=== PATIENT | male | born 1960 | race Hispanic/Latino ===

== ENCOUNTER → 2016-11-25 | Outpatient (CLI) | payer OTHER ==
[~2016-11-25] MED LIST: ASP81TEC PO; METO25TA PO; OMEG-160 PO; OMG1KC PO; PNT40TEC PO; PRAS10TA6 PO; PRAV40TA PO; TAMS0.4C2 PO
--- NOTE | 2016-11-26 08:58 | ECHOCARDIOGRAPHY REPORT ---
PROCEDURE PHYSICIAN: ADILIA PERKINS DATE OF PROCEDURE: 11/25/2016 TWO DIMENSIONAL ECHOCARDIOGRAM REPORT PRIMARY PHYSICIAN: OTHER PHYSICIAN: REFERRING PHYSICIAN: Dr. Edelmira Bhatti ORDERING PHYSICIAN: INDICATION FOR THE PROCEDURE: Coronary artery disease. MEASUREMENTS DERIVED VALUES LV DIAMETER (LAX) NORMALS NORMALS Diastolic 4.6 (3.6-5.2) Eject. Fract. 60% (60%+/-6%) Systolic (2.3-3.9) Diastolic Vol. % Shortening (0.22-0.42) Systolic Vol. Aortic Root IVS THICKNESS Diastolic 1 (0.6-1.1) LVPW THICKNESS Diastolic 1 (0.6-1.1) LA DIAMETER Systolic 3.3 (2.1-3.7) FINDINGS: 1. Technical quality is good. 2. The left ventricle is normal in size with normal contractility. Systolic function appeared to be normal. Estimated ejection fraction 60%. 3. The left atrium is normal in size. No clot or thrombus were seen within the left atrium. 4. The right atrium and right ventricle are normal in size. No clot or thrombus were seen within the right side. 5. Mitral valve is normal in morphology with mild mitral regurgitation noted by color Doppler flow. No mitral valve prolapse. No mitral valve stenosis. 6. Aortic valve is trileaflet with normal opening and closing pattern. No significant aortic stenosis or regurgitation was seen. 7. Tricuspid valve is normal in morphology with mild tricuspid regurgitation noted by color Doppler flow. Doppler across tricuspid valve estimated pulmonary artery pressure of 16+ right atrial pressure. 8. Pulmonic valve is functioning normally. 9. No pericardial effusion. IN CONCLUSION: 1. Normal left ventricular size and systolic function. Estimated ejection fraction 60%. 2. Mild mitral and tricuspid regurgitation. 3. Estimated pulmonary artery pressure of 25 mmHg. Job ID: [id number] Dictated Date: 11/25/2016 16:52:12 Pan Devulcanizer Helper Date: 11/26/2016 08:56:05 / lin
== END ==
LOC: CARD 09:59
PROVIDERS: ATTEND Internal Medicine Cardiovascular Disease
DX: I25.10 Atherosclerotic heart disease of native coronary artery without angina pectoris (principal)
CPT/HCPCS: 93306

== ENCOUNTER → 2017-02-08 | Outpatient (CLI) | payer OTHER ==
[~2017-02-08] VITALS: Ht 170.2 cm; Wt 88.0 kg
[~2017-02-08] MED LIST changes: +CATHETER FLUSH 10 ML SYR IV PRN
[2017-02-08 09:29] VITALS: BP 118/85
[2017-02-08 09:32] VITALS: BP 117/75
[2017-02-08 09:34] VITALS: BP 125/63
[2017-02-08 09:41] VITALS: BP 180/80
[2017-02-08 09:44] VITALS: BP 145/65
[2017-02-08 09:50] VITALS: BP 137/69
--- NOTE | 2017-02-09 07:14 | STRESS TEST ---
DATE OF SERVICE: 02/08/2017 REFERRING PHYSICIAN: Dr. Edelmira Bhatti Baseline heart rate is 64, baseline blood pressure 123/79, baseline EKG is sinus rhythm with no ischemic changes. In summary, the patient was injected with 10.36 mCi of technetium-99 Myoview and the resting images were obtained. Then the patient started exercising with a baseline heart rate, blood pressure and EKG mentioned above. At minute 11 and 30 seconds, the patient was injected with 29.6 mCi of technetium-99 Myoview. The patient was able to exercise for a total of 12 minutes 30 seconds on standard Regino protocol to 12.8 mets, achieving 97% of maximum expected heart rate. With peak exercise level, EKG was showing nondiagnostic changes. Blood pressure was at peak 180/80. The resting and stress images were reviewed and compared in the short axis, horizontal long axis and vertical long axis views. Review of the images showed breast attenuation affecting the quality of the images. There is no significant ischemia or infarction on SPECT images. There is mild decreased uptake at the anterolateral wall with subtle reversibility. SSS is 4, SDS 3, TID value 0.84. On the gaited images, the left ventricle appeared to be normal size with normal contractility, calculated ejection fraction is 61%. CONCLUSION: 1. Excellent exercise tolerance, a total of 12 minute 30 seconds on standard Regino protocol. A total of 12.8 mets achieving 97% of maximum expected heart rate. 2. Nondiagnostic EKG changes with exercise, returned to baseline during recovery. 3. Breast attenuation affecting the quality of the images with mild decreased uptake involving the anterolateral wall with subtle reversibility, most probably secondary to the breast attenuation. 4. Normal left ventricular size with normal contractility. Calculated ejection fraction 61%. Job ID: [id number] DocumentID: [id number] Dictated Date: 02/08/2017 12:12:17 Armature Winder Repair Date: 02/08/2017 14:46:23 Dictated By: ADILIA PERKINS MD
== END ==
LOC: CARD 08:04
PROVIDERS: ATTEND Internal Medicine Cardiovascular Disease
DX: I25.10 Atherosclerotic heart disease of native coronary artery without angina pectoris (principal)
CPT/HCPCS: 78452; 93017

== ENCOUNTER → 2018-04-21 | Outpatient (CLI) | payer BC, OTHER ==
[~2018-04-21] MED LIST changes: +ACHD5005 PO; +ASPI-999 PO; -CATHETER FLUSH 10 ML SYR IV PRN; +METF500T8 PO; +METO-387 PO; +PANT40TA3 PO; +PRAV40TA2 PO
--- NOTE | 2018-04-21 12:12 | Diagnostic Imaging Report ---
Indication: Lump in the left groin. Sonographic interrogation of the left groin was performed. There is an enlarged lymph node in the left groin measuring 5.8 x 1.9 x 2.5 cm. No other masses are seen. No definite hernia is identified. Impression: Enlarged left groin lymph node, as described and etiology is indeterminate. Dictated by: Dictated on workstation # [id number]
== END ==
LOC: RAD 10:10
PROVIDERS: ATTEND Nurse Practitioner Family
DX: R59.0 Localized enlarged lymph nodes (principal); K40.90 Unilateral inguinal hernia, without obstruction or gangrene, not specified as recurrent
CPT/HCPCS: 76881

== ENCOUNTER 2018-05-10 05:30 | Outpatient (CLI) | payer BC ==
[~2018-05-10] VITALS: Ht 170.2 cm; Wt 85.7 kg
[~2018-05-10 05:30] MED LIST changes: -ACHD5005 PO; -ASPI-999 PO; -METF500T8 PO; -METO-387 PO; -PANT40TA3 PO; -PRAV40TA2 PO
[2018-05-10] MEDS ORDERED: PRAV40TA2 PO (14:54)
[2018-05-10] MEDS ORDERED: METF500T8 PO (14:54)
[2018-05-10] MEDS ORDERED: METO-387 PO (14:54)
[2018-05-10] MEDS ORDERED: TAMS0.4C2 PO (14:54)
[2018-05-10] MEDS ORDERED: ASPI-999 PO (15:19)
[2018-05-10] MEDS ORDERED: PANT40TA3 PO (15:19)
[2018-05-13] MEDS ORDERED: ACHD5005 PO (11:58)
== END 2018-05-10 15:20 | disposition home or self-care (01) ==
LOC: PREOP 05:30
PROVIDERS: ATTEND Surgery
DX: Z01.818 Encounter for other preprocedural examination (principal)

== ENCOUNTER 2018-05-13 10:08 | Day surgery (SDC) | payer BC ==
[~2018-05-13] VITALS: Ht 170.2 cm; Wt 85.7 kg
[~2018-05-13 10:08] MED LIST changes: +ASPI-999 PO; +METF500T8 PO; +METO-387 PO; +PANT40TA3 PO; +PRAV40TA2 PO
[2018-05-13] MEDS ORDERED: ceFAZolin 2 GM IV Premixed 50 ML ONE (10:15)
[2018-05-13] MEDS ORDERED: LIDOCAINE/EPI 1%-1:200,000 (XYLOCAINE) 10 ML VIAL ONE (10:16)
[2018-05-13] MEDS ORDERED: fentaNYL INJECTION 100 MCG/2 ML AMP ONE (10:21)
[2018-05-13] MEDS ORDERED: MIDAZOLAM 2 MG/2 ML (VERSED) VIAL ONE (10:21)
[2018-05-13] MEDS ORDERED: ONDANSETRON 4 MG/2 ML (SDV) Z0FRAN ONE (10:25)
[2018-05-13] MEDS ORDERED: DEXAMETHASONE 10 MG/ML (DECADRON) 1 ML VIAL ONE (10:25)
[2018-05-13] MEDS ORDERED: proPOfol 200 MG/20 ML (DIPRIVAN) VIAL IV ONE (10:25)
[2018-05-13] MEDS ORDERED: LIDOCAINE PF 2% 5 ML (XYLOCAINE) VIAL ONE (10:25)
[2018-05-13] MEDS ORDERED: CATHETER FLUSH 10 ML SYR IV PRN (10:30)
[2018-05-13] MEDS ORDERED: ceFAZolin 2 GM IV Premixed 50 ML IV ONE (10:30)
[2018-05-13] MEDS ORDERED: SEVOFLURANE (ULTANE) 15 ML INHAL SOLN ONE (10:34)
[2018-05-13] MEDS: LACTATED RINGERS 1,000 ML IV PRN ×3 (10:40→11:49)
[2018-05-13 10:51] VITALS: BP 134/84
[2018-05-13] MEDS ORDERED: ESMOLOL 100 MG/10 ML (BREVIBLOC) VIAL ONE (11:51)
--- NOTE | 2018-05-13 11:56 | Progress Note-Pre Operative ---
Pre-Operative Progress Note H&P Reviewed The H&P was reviewed, patient examined and no changes noted. Time Seen by Provider: 11:02 Date H&P Reviewed: May 13, 2018 Time H&P Reviewed: 11:04 Pre-Operative Diagnosis: Left Inguinal Mass HAROON LARSON DO May 13, 2018 11:56
--- NOTE | 2018-05-13 11:57 | Progress Note-Post Operative ---
Post-Operative Progess Note Surgeon (s)/Inside Sales Executive (s) Surgeon HAROON LARSON DO Inside Sales Executive: none Pre-Operative Diagnosis Left Inguinal Mass Post-Operative Diagnosis Probable deep left inguinal lymph nodes Procedure & Operative Findings Date of Procedure 05/13/18 Procedure Performed/Findings Exc of Deep Left inguinal lymph nodes Anesthesia Type GET Estimated Blood Loss Estimated blood loss (mL): 50ml Specimens/Packing Specimens Removed left inguinal lymph nodes HAROON LARSON DO May 13, 2018 11:57
[2018-05-13] MEDS ORDERED: ACHD5005 PO (11:58)
--- NOTE | 2018-05-13 12:00 | Discharge Inst-Surgical ---
Discharge Inst-Surgical Depart Medication/Instructions New, Converted or Re-Newed RX: RX Given to Pt/Family Patient Instructions Follow up Appt: Make appointment for 1 week. Instructions: No lifting greater than 10 pounds. No strenuous activity. May shower in 24 hours, no tub bath or soaking. Use incentive spirometer at home as directed. No Smoking Skin/Wound Care: May remove bandages in am. You need to leave the Dermabond on over incision it will fall off on its own. Symptoms to Report: Appetite Changes, Extremity Discoloration, Numbness/Tingling, Swelling Increased , Bleeding Excessive, Eyesight Changes, Pain Increased, Urine Color Change, Constipation(Persistent), Fever over 101 degree F, Pain/Pressure in chest, Urinating Difficulty, Cough Up/Vomit Blood, Heart Beat Irreg/Pounding, Pain/ Pressure in jaw, Cramps in feet or legs, Lightheadedness, Pain/Pressure in shoulder, Diarrhea(Persistent), Memory Changes Suddenly, Questions/Concerns, Weight gain consecutive days, Dizziness/Fainting, Nausea/Vomiting, Shortness of Breath, Weight gain over 2 pounds If questions or concerns contact your physician Or seek help at emergency department. Activity Activity Instructions: Avoid Stress to Incision Driving Instructions: No Driving/Refer to Diet Discharge Diet: No Restrictions Diet After 24 Hours: Clear Liquid if Nauseous If Any Problems/Questions/Issu: Contact Your Physician, Go to Emergency Room Skin/Wound Care Infection Signs and Symptoms: Increased Redness, Foul Odor of Wound, Increased Drainage, Skin Itchy or Has a Rash, Increased Swelling, Temperature Above 101 F Bathing Instructions: Shower Stitches/Sushant/Dermabond Dis: Dermabond Ice Pack: Ice On and Off Site (as needed for pain) HAROON LARSON DO May 13, 2018 12:00
[2018-05-13] MEDS ORDERED: PROMETHAZINE INJ 25 MG/ML (PHENERGAN) AMP IVP PRN (12:15)
[2018-05-13] MEDS ORDERED: morphine INJ 10 MG/ML 1ML (SYR OR VIAL) IVP PRN (12:15)
[2018-05-13] MEDS ORDERED: ONDANSETRON 4 MG/2 ML (SDV) Z0FRAN IVP PRN (12:15)
[2018-05-13] MEDS ORDERED: HYDROmorphone 1 MG/ML (DILAUDID) 1 ML SYRINGE IV PRN (12:15)
[2018-05-13 12:50] VITALS: BP 112/79
--- NOTE | 2018-05-13 13:12 | Anesthesia-General Post-Op ---
General Patient Condition Mental Status/LOC: Same as Preop Cardiovascular: Satisfactory Nausea/Vomiting: Absent Respiratory: Satisfactory Pain: Controlled Complications: Absent Post Op Complications Complications None Follow Up Care/Instructions Patient Instructions None needed. Anesthesia/Patient Condition Patient Condition Patient is doing well, no complaints, stable vital signs, no apparent adverse anesthesia problems. No complications reported per nursing. SILVIANO BANKS CRNA May 13, 2018 13:11
[2018-05-13 13:20] VITALS: BP 114/80
[2018-05-13 13:50] VITALS: BP 115/75
[2018-05-13 14:10] VITALS: BP 115/75
--- NOTE | 2018-05-13 15:56 | OPERATIVE REPORT ---
DATE OF SERVICE: 05/13/2018 PREOPERATIVE DIAGNOSIS: Left inguinal mass suspected lymph nodes. POSTOPERATIVE DIAGNOSIS: Probable deep left inguinal lymph nodes. PROCEDURE: Excision of deep inguinal lymph node. SURGEON: DO FARHAD Foster ASSIST: None. ANESTHESIA: General endotracheal tube. SPECIMEN: Deep left inguinal lymph nodes. BLOOD LOSS: Approximately 50 mL. FLUIDS: Per anesthesia. POSTOPERATIVE CONDITION: Stable. INDICATION FOR PROCEDURE: The patient is a 58-year-old male, who has a mass in left inguinal region, probable lymph nodes and he wanted to get these removed for diagnosis. FINDINGS: The patient had deep left inguinal lymph nodes removed and sent to pathology. PROCEDURE NOTE: After informed consent was obtained, the patient was brought to the operating room, placed on the table in supine position. He was sterilely prepped and draped in normal fashion. Local lidocaine used to perform an ilioinguinal nerve block and then used to infiltrate the left inguinal region with local. The incision was made with #15 blade, carried down to skin and subcutaneous tissue, then deepened down to subcutaneous tissue with Bovie electrocautery down to this mass and started dissecting around it. Encountered some of these looked like they were lymph nodes. They were deep through the deep fascia and got into one of the vessels with some bleeding. This was clamped with a hemostat and then suture ligated with 3-0 Vicryl and removed all the deep inguinal lymph node and then passed this off the table. Copiously irrigated with normal saline. Hemostasis obtained using Bovie electrocautery and elected to close the deep fascia with a 3-0 Vicryl, 2 interrupted sutures and closed Anibal's fascia with 3-0 Vicryl 3 interrupted sutures and closed the skin with 4-0 undyed Monocryl in running subcuticular fashion. Area was cleaned and dried. Dermabond placed as well as dressing and patient then transferred to recovery room in stable condition. Sponge, instrument and needle counts correct at the end of the case. Job ID: [id number] DocumentID: [id number] Dictated Date: 05/13/2018 12:02:58 Networking Technology Instructor Date: 05/13/2018 15:55:32 Dictated By: HAROON LARSON DO [facility]PITALElizabeth
--- OUTSIDE RECORDS SUMMARY | 2018-05-13 18:18 | XMS REPORT ---
Author Author LAURENT LEIGH Organization [employer] Address Unknown Phone Unavailable Care Team Providers Care Auto Air Conditioning Apprentice Name Role Phone LAURENT LEIGH CP Unavailable Allergies No Known Allergies Problems Problem Type Condition Code Onset Dates Condition Status Problem GERD (gastroesophageal reflux disease) K21.9 Active Problem Hyperlipidemia E78.5 Active Problem CAD (coronary artery disease) I25.10 Active Problem Prediabetes R73.03 Active Problem Hypertension I10 Active Problem Neuropathy G62.9 Active Problem assisted current use of insulin Z79.4 Active Problem HTN (hypertension) I10 Active Problem Hyperlipemia E78.5 Active Problem Type 2 diabetes mellitus without complications E11.9 Active Problem Encounter for dental examination Z01.20 Active Problem Encounter for screening colonoscopy Z12.11 Active Problem BPH (benign prostatic hyperplasia) N40.0 Active Medications No Known Medications Results No Known Results Summary Purpose [employer] Submission
--- OUTSIDE RECORDS SUMMARY | 2018-05-13 18:18 | XMS REPORT ---
Author Author LAURENT LEIGH Organization [facility] Address [address] [place] [address] Care Team Providers Care Sack Department Supervisor Name Role Phone LEIGHLAURENT Patino Unavailable PROBLEMS Type Condition ICD9-CM Code OMZ22-BA Code Onset Dates Condition Status SNOMED Code Problem Hyperlipidemia E78.5 Active 69209091 Problem Encounter for screening colonoscopy Z12.11 Active 242162132 Problem BPH (benign prostatic hyperplasia) N40.0 Active 925718499 Problem HTN (hypertension) I10 Active 06431142 Problem CAD (coronary artery disease) I25.10 Active 55620432 Problem GERD (gastroesophageal reflux disease) K21.9 Active 471242273 Problem Encounter for dental examination Z01.20 Active 897421261 Problem Type 2 diabetes mellitus without complications E11.9 Active 203104356 Problem Hypertension I10 Active 60560652 Problem Hyperlipemia E78.5 Active 58380722 Problem Neuropathy G62.9 Active 997210068 Problem Prediabetes R73.03 Active 694068637 ALLERGIES No Information SOCIAL HISTORY Never Assessed PLAN OF CARE VITAL SIGNS MEDICATIONS Unknown Medications RESULTS No Results PROCEDURES Procedure Date Ordered Result Body Site COMPREHEN METABOLIC PANEL March 11, 2017 COMPLETE CBC W/AUTO DIFF WBC March 11, 2017 LIPID PANEL March 11, 2017 GLYCATED HEMOGLOBIN TEST March 11, 2017 VENIPUNCT, ROUTINE* March 11, 2017 ASSAY THYROID STIM HORMONE March 11, 2017 IMMUNIZATIONS No Known Immunizations MEDICAL (GENERAL) HISTORY Type Description Date Medical History hyperlipidemia Medical History hypertension Medical History CAD w/stents x 2 RCA Medical History BPH Medical History GERD Surgical History Surgery on right fingers Surgical History Stents placed- Dr Armstrong 10/17- ([id number]) Hospitalization History blocked artery with stent placement 10/17/2012
--- OUTSIDE RECORDS SUMMARY | 2018-05-13 18:18 | XMS REPORT ---
Author Author JAMES COFFMAN Organization [facility] Address [address] [place] [address] Care Team Providers Care Supervisor Composing Room Name Role Phone JAMES COFFMAN Unavailable PROBLEMS Type Condition ICD9-CM Code LKI01-WQ Code Onset Dates Condition Status SNOMED Code Problem GERD (gastroesophageal reflux disease) K21.9 Active 620900795 Problem CAD (coronary artery disease) I25.10 Active 96838329 Problem Essential hypertension I10 Active 72612434 Problem Overweight (BMI 25.0-29.9) E66.3 Active 823329403 Problem Hyperlipemia E78.5 Active 76367786 Problem BPH (benign prostatic hyperplasia) N40.0 Active 395203638 Problem Prediabetes R73.03 Active 604176632 Problem Neuropathy G62.9 Active 908766920 ALLERGIES No Information ENCOUNTERS Encounter Location Date Diagnosis [place] [id number] [place] [address] 76584- 0845 Dec, Prediabetes R73.03 ; Essential hypertension I10 ; Hyperlipidemia E78.5 ; GERD (gastroesophageal reflux disease) K21.9 ; Neuropathy G62.9 and Overweight (BMI 25.0-29.9) E66.3 [facility] [id number] [place] [address] 29823- 4177 Sep, HTN (hypertension) I10 ; Hyperlipidemia E78.5 ; GERD ( gastroesophageal reflux disease) K21.9 ; Neuropathy G62.9 ; Prediabetes R73.03 and BPH (benign prostatic hyperplasia) N40.0 [place] [address] [address]- [address] Aug, [place] [id number] [place] [address] 29278- 8119 Aug, Prediabetes R73.03 ; HTN (hypertension) I10 ; Hyperlipidemia E78.5 ; BPH (benign prostatic hyperplasia) N40.0 and Neuropathy G62.9 [facility] [address] [id number] Jul, Encounter for dental examination Z01.20 [facility] [id number] [place] [id number] Jul, Dental examination Z01.20 [facility] [id number] [place] [address] 59537- 2546 Jul, CAD (coronary artery disease) I25.10 ; Hyperlipidemia E78.5 ; HTN (hypertension) I10 and Type 2 diabetes mellitus without complications E11.9 [facility] [id number] [place] [address] [id number] Apr, Dental examination Z01.20 [facility] [id number] [place] [address] 83330- 7716 Apr, [facility] [id number] [place] [address] 49816- 3346 Apr, Gastroenteritis K52.9 [facility] [id number] [place] [address] 92650- 3856 February, [facility] [id number] [place] [address] 533436- 7126 February, Prediabetes R73.03 ; HTN (hypertension) I10 ; Hyperlipidemia E78.5 and GERD (gastroesophageal reflux disease) K21.9 [facility] [id number] [place] [address] 134388- 0076 February, [facility] [id number] [place] [address] 91980- 8426 February, Prediabetes R73.03 ; HTN (hypertension) I10 ; Hyperlipidemia E78.5 ; GERD (gastroesophageal reflux disease) K21.9 ; BPH ( benign prostatic hyperplasia) N40.0 and Neuropathy G62.9 [facility] [id number] [place] [address] [id number] Jan, Encounter for dental examination Z01.20 [facility] [id number] [place] [address] 30730- 0452 Jan, [facility] [id number] [place] [address] 92467- 7440 Jan, CAD (coronary artery disease) I25.10 ; Hyperlipidemia E78.5 ; Hypertension I10 and Type 2 diabetes mellitus without complications E11.9 [facility] [id number] [place] [address] 22338- 6072 09 Nov, 2016 Hypertension I10 ; Hyperlipidemia E78.5 ; Prediabetes R73.03 ; BPH (benign prostatic hyperplasia) N40.0 and Neuropathy G62.9 [facility] [id number] [place] [address] 40014- 9991 Nov, [facility] [id number] [place] [address] 00282- 1247 Oct, Encounter for dental examination Z01.20 [facility] [id number] [place] [address] 39746- 2600 Sep, [facility] [id number] [place] [address] 74700- 2941 Sep, [facility] [id number] [place] [address] 78912- 0117 Aug, [facility] [id number] [place] [address] 87590- 5983 Aug, CAD (coronary artery disease) I25.10 ; Hypertension I10 ; Hyperlipemia E78.5 ; Type 2 diabetes mellitus without complications E11.9 and petroleum terminal plant operator current use of insulin Z79.4 [facility] [id number] [place] [address] 40593- 6198 Jul, [facility] [address] [place] [address] [phone] Jul, Encounter for dental examination Z01.20 [facility] [id number] [place] [address] 07 Jul, 2016 Prediabetes R73.03 ; HTN (hypertension) I10 ; Hyperlipidemia E78.5 ; CAD (coronary artery disease) I25.10 ; GERD ( gastroesophageal reflux disease) K21.9 ; Neuropathy G62.9 and BPH (benign prostatic hyperplasia) N40.0 [facility] [address] [place] [address] 67401- 0366 Jun, [facility] [address] [id number] Apr, Encounter for dental examination Z01.[address] 13599- 4626 February, CAD (coronary artery disease) I25.10 ; Hypertension I10 ; Hyperlipemia E78.5 and Anxiety F41.9 [place] [address] [place] [id number] [place] [address] [phone] Jan, Encounter for dental examination Z01.20 [place] [id number] [place] [address] 46744- 9020 Dec, [address] 57168- 9631 Dec, HTN (hypertension) I10 ; Hyperlipidemia E78.5 ; CAD ( coronary artery disease) I25.10 ; GERD (gastroesophageal reflux disease) K21.9 ; BPH (benign prostatic hyperplasia) N40.0 and Encounter for screening colonoscopy Z12.11 [place] [id number] [place] [address] [id number]- 4725 Aug, CAD (coronary artery disease) I25.10 ; Hypertension I10 ; Anxiety F41.9 and Hyperlipemia E78.5 [facility] [id number] [place] [address] [phone] Jul, Encounter for dental examination Z01.20 [facility] [address] [id number]- 0496 Jul, [facility] [address] [id number] [id number] Mar, Dental examination V72.2 [facility] [address] [address] February, [facility] [address] [address]- 9135 February, Other and unspecified hyperlipidemia 272.4 ; Unspecified essential hypertension 401.9 and CAD (coronary artery disease) 414.00 [facility] [address] [address]- 9324 February, Unspecified essential hypertension 401.9 ; Other and unspecified hyperlipidemia 272.4 ; CAD (coronary artery disease) 414.00 and Fatigue 780.79 [facility] [address] Jan, [facility] [id number] [place] [address] 86966- 2762 Jan, [facility] [address] [address]- 4850 Nov, [facility] [address] [address]- 5402 Nov, [facility] [address] 2642 Nov, [facility] [address] [address]- 0384 Nov, [facility] [id number] 4994 Sep, [facility] [address] [address]- 0840 Sep, [facility] [id number] [address]- 2416 Sep, [facility] [address] [address]- 8816 Sep, [facility] [place] [facility] [address] [id number] [place] [address] Sep, [facility] [place] [facility] [address] [id number] [place] [address]- 3258 Sep, [facility] [place] [facility] [address] [facility] [id number] [place] [address]- 8386 Aug, [facility] [place] [facility] [address] [id number] [place] [address]- 9942 Aug, [facility] [place] [facility] [address] [id number] [place] [address]- 3495 Aug, [facility] [place] [facility] [address] [id number] [place] [address]- 5509 Aug, [facility] [place] [facility] [address] [id number] [place] [address]- 9369 Jul, [facility] [place] [facility] [address] [id number] [place] [address]- 5992 Jul, [facility] [place] [facility] [address] [id number] [place] [address]- 6886 Jul, [facility] [place] [facility] [address] [id number] [place] [address]- 8730 Jul, [facility] [place] [facility] [address] [id number] [address]- 5335 29 Jun, 2014 [facility] [place] [facility] [address] [id number] [address]- 5016 29 Jun, 2014 [facility] [place] [facility] [address] [id number] [place] [address]- 4331 23 Jun, 2014 [facility] [place] [facility] [address] [id number] [place] [address]- 3945 23 Jun, 2014 [facility] [place] [facility] [address] [id number] [place] [address]- 9099 22 Jun, 2014 [facility] [place] [facility] [address] [id number] [place] [address]- 4005 22 Jun, 2013 [facility] [place] [facility] [address] [id number] [place] [address]- 0442 18 Jun, 2014 [facility] [place] [facility] [address] [id number] [place] [address]- 8807 18 Jun, 2014 [facility] [place] [facility] [address] [id number] [place] [address]- 1804 Mar, [facility] [place] [facility] [address] [id number] [place] [address]- 1019 Mar, [facility] [place] [facility] [address] [id number] [place] [address]- 9984 Jan, [facility] [place] [facility] [address] [id number] [place] [address]- 2905 Jan, [facility] [place] [facility] [address] [id number] [place] [address]- 6726 Oct, [facility] [place] [facility] [address] [id number] [place] [address]- 0777 Oct, [facility] [place] [facility] [address] [id number] [place] [address]- 2516 17 Jun, 2012 [facility] [place] [facility] [address] [id number] [place] [address]- 7177 17 Jun, 2012 [facility] [place] [facility] [address] [id number] [place] [address]- 2541 16 Jun, 2012 [facility] [place] [facility] [address] [id number] [place] [address]- 2542 16 Jun, 2012 [facility] [place] [facility] [address] [id number] [place] [address]- 0172 06 Jun, 2012 [facility] [place] [facility] [address] [id number] [place] [address]- 5762 04 Jun, 2012 [facility] [place] [facility] [address] [id number] [place] [address]- 2398 May, [facility] [place] [facility] [address] [id number] [place] [address]- 0258 May, [facility] [place] [facility] [address] [id number] [place] [address]- 3688 Mar, [facility] [place] [facility] [address] [id number] [place] [address]- 9094 February, [facility] [place] [facility] [address] [id number] [place] [address]- 1198 Jan, [facility] [address] [id number] [place] [address]- 7684 Jan, [facility] [place] [facility] [address] [id number] [place] [address]- 7866 Jan, [facility] [address] [id number] [place] [address]- 5031 Nov, [facility] [address] [id number] [place] [address]- 6055 Aug, [facility] [place] [facility] [address] [id number] [place] [address]- 8516 Aug, [facility] [address] [id number] [place] [address]- 4470 Aug, [facility] [place] [facility] [address] [id number] [place] [address]- 5371 Aug, [facility] [place] [facility] [address] [id number] [place] [address]- 3511 Aug, [facility] [place] [facility] [address] [id number] [place] [address]- 6345 Aug, [facility] [place] [facility] [address] [id number] [place] [address]- 4392 Aug, [facility] [place] [facility] [address] [id number] [place] [address]- 1069 Aug, [facility] [place] [facility] [address] [id number] [address]- 1601 Jun, [facility] [address] [id number] [place] [address]- 8148 February, [facility] [place] [facility] [address] [id number] [place] [address]- 1206 February, [facility] [place] [facility] [address] [facility] [id number] [place] [address]- 6066 February, [facility] [place] [facility] [address] [id number] [place] [address]- 9082 Jan, [facility] [place] [facility] [address] [id number] [place] [address]- 1570 Nov, [facility] [place] [facility] [address] [id number] [place] [address]- 6351 Oct, [facility] [address] [facility] [id number] [place] [address]- 6384 Oct, [facility] [place] [facility] [address] [facility] [id number] [place] [address]- 5479 Sep, [facility] [place] [facility] [address] [facility] [id number] [place] [address]- 1007 14 Sep, 2011 [facility] [place] [facility] [address] [facility] [id number] [place] [address]- 5806 14 Sep, 2011 [facility] [place] [facility] [address] [facility] [id number] [place] [address]- 9810 13 Sep, 2011 [facility] [place] [facility] [address] [facility] [id number] [place] [address]- 0028 Sep, [facility] [place] [facility] [address] [facility] [id number] [place] 5874 08 Sep, 2011 [facility] [place] [facility] [address] [facility] [id number] [place] [address]- 1627 12 Jul, 2011 [facility] [place] [facility] [address] [facility] [id number] [place] [address]- 4914 Jul, [facility] [place] [facility] [address] [facility] [id number] [place] [address]- 1144 10 Mar, 2011 IMMUNIZATIONS No Known Immunizations SOCIAL HISTORY Never Assessed REASON FOR VISIT Diabetes f/u PLAN OF CARE VITAL SIGNS MEDICATIONS No Known Medications RESULTS No Results PROCEDURES No Known procedures INSTRUCTIONS MEDICATIONS ADMINISTERED No Known Medications MEDICAL (GENERAL) HISTORY Type Description Date Medical History hyperlipidemia Medical History hypertension Medical History CAD w/stents x 2 RCA Medical History BPH Medical History GERD Surgical History Surgery on right fingers Surgical History Stents placed- Dr Armstrong 10/17- ([id number]) Hospitalization History blocked artery with stent placement 10/17/2012
--- OUTSIDE RECORDS SUMMARY | 2018-05-13 18:18 | XMS REPORT ---
Author Author GURMEET NAYAK [employer] Address Unknown Phone Unavailable Care Team Providers Care Aerodynamics Professor Name Role Phone GURMEET NAYAK CP Unavailable Allergies, Adverse Reactions, Alerts Substance Reaction Event Type N.K.D.A. Info Not Available Non Drug Allergy Problems Problem Type Condition Code Onset Dates Condition Status Assessment Encounter for dental examination Z01.20 Active Problem Encounter for screening colonoscopy Z12.11 Active Problem Encounter for dental examination Z01.20 Active Problem Prediabetes R73.03 Active Problem HTN (hypertension) I10 Active Problem Neuropathy G62.9 Active Problem GERD (gastroesophageal reflux disease) K21.9 Active Problem BPH (benign prostatic hyperplasia) N40.0 Active Problem Hyperlipidemia E78.5 Active Problem CAD (coronary artery disease) I25.10 Active Medications Medication Code System Code Instructions Start Date End Date Status Dosage MetFORMIN HCl ER [facility] [address]-88 500 MG Orally 2 times a day December 23, 2015 1 tablet with evening meal for one week, then one tablet with meals twice daily Metoprolol Succinate ND 0 25 mg by oral route Once a day Nov 26, 2014 1 tablet by Oral route 1 time per day Pravastatin Sodium [facility] [address]-90 40 mg Orally Once a day February 22, 2015 1 tablet Multi Vitamin Mens [facility] [address]76[address]80 Orally Once a day 1 tablet Aspirin [facility] [address]-55 Nov 24, 2011 by Oral route Tamsulosin HCl [facility] [address]-61 0.4 MG Orally Once a day 1 capsule 30 minutes after the same meal each day Gabapentin [facility] [address]-73 100 MG Orally Once a day Jul 24, 2016 1 capsule Pantoprazole Sodium [facility] [address]-51 40 mg Orally Once a day Aug 23, 2015 1 tablet Fish Oil [facility] [address]-48 Aug 31, 2012 not defined Procedures Procedure Coding System Code Date Periodontal maint procedures CPT-4 D4910 Jul 28, 2016 Vital Signs Date/Time: Jul 28, 2016 Blood Pressure Diastolic 77 mmHg Blood Pressure Systolic 116 mmHg Cardiac Monitoring Heart Rate 69 bpm Results No Known Results Summary Purpose eClinicalWorks Submission
--- OUTSIDE RECORDS SUMMARY | 2018-05-13 18:18 | XMS REPORT ---
Author Author GURMEET NAYAK Organization [facility] Address [address] [place] [address] Care Team Providers Care Bulb Weeder Name Role Phone GURMEET NAYAK Unavailable PROBLEMS Type Condition ICD9-CM Code OEV36-YB Code Onset Dates Condition Status SNOMED Code Problem BPH (benign prostatic hyperplasia) N40.0 Active 480327381 Problem HTN (hypertension) I10 Active 82126224 Problem Encounter for screening colonoscopy Z12.11 Active 457034175 Problem Hyperlipidemia E78.5 Active 84312755 Problem Neuropathy G62.9 Active 850980622 Problem Prediabetes R73.03 Active 146745989 Problem GERD (gastroesophageal reflux disease) K21.9 Active 815558334 Problem CAD (coronary artery disease) I25.10 Active 11940061 Problem Hyperlipemia E78.5 Active 62348365 Problem Hypertension I10 Active 73518264 ALLERGIES No Information SOCIAL HISTORY Never Assessed PLAN OF CARE Activity Details Follow Up 3 Months Reason:Perio Maint VITAL SIGNS Heart Rate 77 bpm 2016-10-30 Blood pressure systolic 133 mmHg 2016-10-30 Blood pressure diastolic 86 mmHg 2016-10-30 MEDICATIONS Unknown Medications RESULTS No Results PROCEDURES Procedure Date Ordered Result Body Site Periodontal maint procedures Oct 30, 2016 IMMUNIZATIONS No Known Immunizations MEDICAL (GENERAL) HISTORY Type Description Date Medical History hyperlipidemia Medical History hypertension Medical History CAD w/stents x 2 RCA Medical History BPH Medical History GERD Surgical History Surgery on right fingers Surgical History Stents placed- Dr Armstrong 10/17- ([id number]) Hospitalization History blocked artery with stent placement 10/17/2012
--- OUTSIDE RECORDS SUMMARY | 2018-05-13 18:18 | XMS REPORT ---
Author [facility] Address [address] [place] [address] Care Team Providers Care Senior Technical Manager Name Role Phone LEIGHLAURENT Patino Unavailable PROBLEMS Type Condition ICD9-CM Code HPI42-VF Code Onset Dates Condition Status SNOMED Code Problem GERD (gastroesophageal reflux disease) K21.9 Active 862097148 Problem CAD (coronary artery disease) I25.10 Active 86319540 Problem Essential hypertension I10 Active 74429083 Problem Overweight (BMI 25.0-29.9) E66.3 Active 681185173 Problem Hyperlipemia E78.5 Active 67147497 Problem BPH (benign prostatic hyperplasia) N40.0 Active 303250813 Problem Prediabetes R73.03 Active 368974518 Problem Neuropathy G62.9 Active 811763210 ALLERGIES No Known Allergies ENCOUNTERS Encounter Location Date Diagnosis [place] [id number] [place] [address] 26348- 2657 Apr, Elevated liver enzymes R74.8 [place] [id number] [place] [address] 67499- 4417 Apr, Elevated liver enzymes R74.8 [place] [id number] [place] [address] 45937- 6085 Apr, [place] [id number] [place] [address] 89360- 8641 Mar, Prediabetes R73.03 ; Essential hypertension I10 ; Hyperlipemia E78.5 ; Neuropathy G62.9 ; CAD (coronary artery disease) I25.10 ; GERD (gastroesophageal reflux disease) K21.9 ; BPH (benign prostatic hyperplasia ) N40.0 ; Overweight (BMI 25.0-29.9) E66.3 and Left groin hernia K40.90 [place] [id number] [place] [address] 80282- 9310 Dec, Prediabetes R73.03 ; Essential hypertension I10 ; Hyperlipidemia E78.5 ; GERD (gastroesophageal reflux disease) K21.9 ; Neuropathy G62.9 and Overweight (BMI 25.0-29.9) E66.3 [facility] [id number] [place] [address] 09237- 1219 Sep, HTN (hypertension) I10 ; Hyperlipidemia E78.5 ; GERD ( gastroesophageal reflux disease) K21.9 ; Neuropathy G62.9 ; Prediabetes R73.03 and BPH (benign prostatic hyperplasia) N40.0 [place] [address] 8[address]- 2721 Aug, [place] [address] 83845- 1880 Aug, Prediabetes R73.03 ; HTN (hypertension) I10 ; Hyperlipidemia E78.5 ; BPH (benign prostatic hyperplasia) N40.0 and Neuropathy G62.9 [facility] [id number] [place] [address] [id number] Jul, Encounter for dental examination Z01.20 [facility] [address] [id number] Jul, Dental examination Z01.20 [place] [id number] [place] [address] 37728- 9494 Jul, CAD (coronary artery disease) I25.10 ; Hyperlipidemia E78.5 ; HTN (hypertension) I10 and Type 2 diabetes mellitus without complications E11.9 [facility] [id number] [place] [address] [id number] Apr, Dental examination Z01.20 [facility] [address] [id number] 3539 Apr, [facility] [address] 16154- 0095 Apr, Gastroenteritis K52.9 [place] [id number] [place] [address] 16695- 4761 February, [place] [address] 96834- 0512 February, Prediabetes R73.03 ; HTN (hypertension) I10 ; Hyperlipidemia E78.5 and GERD (gastroesophageal reflux disease) K21.9 [place] [id number] [place] [address] 66826- 8963 February, [place] [id number] [place] [address] 72035- 3380 February, Prediabetes R73.03 ; HTN (hypertension) I10 ; Hyperlipidemia E78.5 ; GERD (gastroesophageal reflux disease) K21.9 ; BPH ( benign prostatic hyperplasia) N40.0 and Neuropathy G62.9 [facility] [id number] [place] [address] [phone] Jan, Encounter for dental examination Z01.20 [place] [id number] [place] [address] 51715- 6088 Jan, [place] [address] 82600- 3490 Jan, CAD (coronary artery disease) I25.10 ; Hyperlipidemia E78.5 ; Hypertension I10 and Type 2 diabetes mellitus without complications E11.9 [place] [id number] [place] [address] 72883- 4390 Nov, Hypertension I10 ; Hyperlipidemia E78.5 ; Prediabetes R73.03 ; BPH (benign prostatic hyperplasia) N40.0 and Neuropathy G62.9 [place] [id number] [place] [address] 52191- 3694 Nov, [place] [id number] [place] [address] 69840- 9720 Oct, Encounter for dental examination Z01.20 [place] [id number] [place] [address] 73784- 8454 Sep, [facility] [id number] [place] [address] 53339- 6611 Sep, [facility] [id number] [place] [address] 16323- 6180 Aug, [facility] [id number] [place] [address] 61410- 0539 Aug, CAD (coronary artery disease) I25.10 ; Hypertension I10 ; Hyperlipemia E78.5 ; Type 2 diabetes mellitus without complications E11.9 and FDC current use of insulin Z79.[address] 30165- 3751 Jul, [facility] [address] [id number] Jul, Encounter for dental examination Z01.20 [place] [address] 26245- 4696 Jul, Prediabetes R73.03 ; HTN (hypertension) I10 ; Hyperlipidemia E78.5 ; CAD (coronary artery disease) I25.10 ; GERD ( gastroesophageal reflux disease) K21.9 ; Neuropathy G62.9 and BPH (benign prostatic hyperplasia) N40.0 [place] [id number] [place] [address] 50204- 5075 Jun, [facility] [id number] [place] [address] [phone] Apr, Encounter for dental examination Z01.20 [facility] [id number] [place] [address] 04305- 4222 February, CAD (coronary artery disease) I25.10 ; Hypertension I10 ; Hyperlipemia E78.5 and Anxiety F41.9 [facility] [id number] [place] [address] [phone] Jan, Encounter for dental examination Z01.20 [facility] [address] 14651- 7736 Dec, [address] 14847- 6688 Dec, HTN (hypertension) I10 ; Hyperlipidemia E78.5 ; CAD ( coronary artery disease) I25.10 ; GERD (gastroesophageal reflux disease) K21.9 ; BPH (benign prostatic hyperplasia) N40.0 and Encounter for screening colonoscopy Z12.[address] 41821- 8156 Aug, CAD (coronary artery disease) I25.10 ; Hypertension I10 ; Anxiety F41.9 and Hyperlipemia E78.5 [facility] [address] [id number] Jul, Encounter for dental examination Z01.[address] [id number]- 0396 Jul, [facility] [address] [id number] Mar, Dental examination V72.[address] 76660- 1015 February, [address] 37513- 6270 February, Other and unspecified hyperlipidemia 272.4 ; Unspecified essential hypertension 401.9 and CAD (coronary artery disease) 414.[address] [id number]- 2043 February, Unspecified essential hypertension 401.9 ; Other and unspecified hyperlipidemia 272.4 ; CAD (coronary artery disease) 414.00 and Fatigue 780.[address] [id number]- 5978 Jan, [address] 30602- 8949 Jan, [address] 84637- 6730 Nov, 2014 [facility] [place] [facility] [address] [id number] [place] [address]- 3110 Nov, 2014 [facility] [place] [facility] [address] [id number] [place] 7417 Nov, 2014 [facility] [place] [facility] [address] [facility] [id number] [place] [address]- 0849 Nov, [facility] [place] [facility] [address] [id number] [place] [address]- 0080 Sep, [facility] [place] [facility] [address] [id number] [place] [address]- 6712 Sep, [facility] [place] [facility] [address] [facility] [id number] [place] [address]- 9804 Sep, [facility] [place] [facility] [address] [facility] [id number] [place] [address]- 3650 Sep, [facility] [place] [facility] [address] [facility] [id number] [place] [address]- 2926 Sep, [facility] [place] [facility] [address] [facility] [id number] [place] [address]- 0283 Sep, [facility] [place] [facility] [address] [facility] [id number] [place] [address]- 6509 Aug, [facility] [place] [facility] [address] [facility] [id number] [place] [address]- 6457 Aug, [facility] [place] [facility] [address] [id number], [place] [address]- 3852 Aug, [facility] [place] [facility] [address] [id number] [place] [address]- 4832 Aug, [facility] [place] [facility] [address] [facility] [id number] [place] [address]- 5280 Jul, [facility] [place] [facility] [address] [facility] [id number] [place] [address]- 8430 Jul, [facility] [place] [facility] [address] [id number] [place] [address]- 5887 10 Jul, 2014 [facility] [place] [facility] [address] [id number] [place] [address]- 7375 10 Jul, 2014 [facility] [place] [facility] [address] [id number] [place] [address]- 5806 29 Jun, 2014 [facility] [place] [facility] [address] [id number] [place] [address]- 5246 29 Jun, 2014 [facility] [place] [facility] [address] [id number] [place] [address]- 1230 23 Jun, 2014 [facility] [place] [facility] [address] [id number] [place] [address]- 9291 23 Jun, 2014 [facility] [place] [facility] [address] [id number] [place] [address]- 2960 Jun, [facility] [place] [facility] [address] [id number] [place] [address]- 7600 Jun, [facility] [place] [facility] [address] [id number] [place] [address]- 3828 18 Jun, 2014 [facility] [place] [facility] [address] [id number] [place] [address]- 0927 Jun, [facility] [place] [facility] [address] [id number] [place] [address]- 3871 Mar, [facility] [place] [facility] [address] [id number] [place] [address]- 4248 Mar, [facility] [place] [facility] [address] [id number] [place] [address]- 6530 Jan, [facility] [place] [facility] [address] [id number] [place] [address]- 2507 Jan, [facility] [place] [facility] [address] [id number] [place] [address]- 2190 Oct, [facility] [place] [facility] [address] [id number] [place] [address]- 8200 Oct, [facility] [address] [id number] [place] [address]- 0949 17 Jun, 2013 [facility] [place] [facility] [address] [id number] [place] [address]- 9800 17 Jun, 2013 [facility] [address] [id number] [place] 9717 16 Jun, 2013 [facility] [place] [facility] [address] [id number] [place] [address]- 5627 16 Jun, 2013 [facility] [address] [id number] [place] [address]- 7134 06 Jun, 2013 [facility] [address] [id number] [place] [address]- 5910 04 Jun, 2013 [facility] [address] [id number] [place] [address]- 6442 May, [facility] [place] [facility] [address] [id number] [place] [address]- 2359 May, [facility] [address] [id number] [place] [address]- 3803 Mar, [facility] [place] [facility] [address] [id number] [place] [address]- 3546 February, [facility] [place] [facility] [address] [id number], [place] [address]- 0118 Jan, [facility] [place] [facility] [address] [id number], [place] [address]- 6553 Jan, [facility] [place] [facility] [address] [id number] [place] [address]- 7583 Jan, [facility] [place] [facility] [address] [id number], [place] [address]- 1027 Nov, [facility] [place] [facility] [address] [id number], [place] [address]- 7534 Aug, [facility] [place] [facility] [address] [id number] [place] [address]- 7485 Aug, [facility] [address] [id number] [place] [address]- 8515 Aug, [facility] [place] [facility] [address] [id number] [place] [address]- 5575 Aug, [facility] [place] [facility] [address] [id number] [place] [address]- 6078 Aug, [facility] [place] [facility] [address] [id number] [place] [address]- 3100 Aug, [facility] [place] [facility] [address] [id number] [place] [address]- 5785 Aug, [facility] [place] [facility] [address] [id number] [place] [address]- 1707 Aug, [facility] [address] [id number] [place] [address]- 8916 Jun, [facility] [address] [id number] [place] [address]- 1803 February, [facility] [place] [facility] [address] [id number] [place] [address]- 9749 February, [facility] [place] [facility] [address] [facility] [id number] [place] [address]- 8399 February, [facility] [place] [facility] [address] [id number] [place] [address]- 8687 Jan, [facility] [place] [facility] [address] [id number] [place] [address]- 5497 Nov, [facility] [place] [facility] [address] [id number] [place] [address]- 5124 Oct, [facility] [place] [facility] [address] [id number] [place] [address]- 1886 Oct, [facility] [place] [facility] [address] [id number] [place] [address]- 2744 Sep, [facility] [address] [facility] [id number][place]- 9151 14 Sep, 2011 [facility] [address] [id number], [place] [address]- 8617 14 Sep, 2011 [facility] [address] [id number], [place] [address]- 7989 Sep, [facility] [address] [address]- 1573 Sep, [facility] [address] [id number] 5316 Sep, [facility] [id number], [place] [address]- 2366 Jul, [facility] [address] [place] [address]- 3648 Jul, [facility] [id number], [place] [address]- 3702 Mar, IMMUNIZATIONS No Known Immunizations SOCIAL HISTORY Never Assessed REASON FOR VISIT Diabetes--felasenGEORGE, --c/o weight gain, overall feeling well. , --needs refill on metformin PLAN OF CARE Activity Details Follow Up 3 Months Reason:CHM/ Prediabetes VITAL SIGNS Height 69 in 2017-12-23 Weight 201.7 lbs 2017-12-23 Temperature 98.0 degrees Fahrenheit 2017-12-23 Heart Rate 86 bpm 2017-12-23 Respiratory Rate 20 2017-12-23 BMI 29.78 kg/m2 2017-12-23 Blood pressure systolic 142 mmHg 2017-12-23 Blood pressure diastolic 94 mmHg 2017-12-23 MEDICATIONS Medication Instructions Dosage Frequency Start Date End Date Duration Status Fish Oil Aug, Active Multi Vitamin Mens Orally Once a day 1 tablet 24h Active Aspirin by Oral route Nov, Active MetFORMIN HCl ER 500 mg Orally 2 times a day Take one tablet with meals twice a day 12h Dec, 90 days Active Metoprolol Succinate ER 25 MG Orally Once a day 1 tablet 24h 90 days Active Pravastatin Sodium 40 mg Orally Once a day 1 tablet 24h February, 90 days Active Pantoprazole Sodium 40 mg Orally Once a day 1 tablet 24h Aug, 90 days Active Glucocard Expression Test 1 subcutaneously 2 times a day test 2 times per day 12h Sep, 12 months Active Gabapentin 300 MG Orally Once a day 1 capsule 24h February, 90 days Active RESULTS Name Result Date Reference Range A1C (IN HOUSE) 2017-12-23 A1C IN HOUSE 6.0 4.3 - 5.6 % Previous A1c 6.0 Lot 08 Exp date 08/26 PROCEDURES Procedure Date Ordered Result Body Site GLYCATED HEMOGLOBIN TEST December 23, 2017 INSTRUCTIONS MEDICATIONS ADMINISTERED No Known Medications MEDICAL (GENERAL) HISTORY Type Description Date Medical History hyperlipidemia Medical History hypertension Medical History CAD w/stents x 2 RCA Medical History BPH Medical History GERD Surgical History Surgery on right fingers Surgical History Stents placed- Dr Armstrong 10/17- ([id number]) Hospitalization History blocked artery with stent placement 10/17/2012
--- OUTSIDE RECORDS SUMMARY | 2018-05-13 18:18 | XMS REPORT ---
Author Author LAURENT LEIGH Organization [facility] Address [address] [place] [address] Care Team Providers Care Drug Purchaser Name Role Phone LAURENT LEIGH Unavailable PROBLEMS Type Condition ICD9-CM Code OEH18-BU Code Onset Dates Condition Status SNOMED Code Problem BPH (benign prostatic hyperplasia) N40.0 Active 337217300 Problem CAD (coronary artery disease) I25.10 Active 31561633 Problem GERD (gastroesophageal reflux disease) K21.9 Active 593842907 Problem Encounter for dental examination Z01.20 Active 666004448 Problem Encounter for screening colonoscopy Z12.11 Active 803918545 Problem Hypertension I10 Active 12281627 Problem Hyperlipemia E78.5 Active 28672786 Problem HTN (hypertension) I10 Active 14379056 Problem Hyperlipidemia E78.5 Active 75462470 Problem Type 2 diabetes mellitus without complications E11.9 Active 619630561 Problem FDC current use of insulin Z79.4 Active 707341709 ALLERGIES Unknown Allergies SOCIAL HISTORY No smoking Hx information available PLAN OF CARE VITAL SIGNS MEDICATIONS Unknown Medications RESULTS No Results PROCEDURES No Known procedures IMMUNIZATIONS No Known Immunizations
--- OUTSIDE RECORDS SUMMARY | 2018-05-13 18:18 | XMS REPORT ---
Author SARAH Granado [facility] eClinicalWorks Address Unknown Phone Unavailable Care Team Providers Care Service Architect Name Role Phone SARAH PINEDA CP Unavailable Allergies No Known Allergies Problems Problem Type Condition Code Onset Dates Condition Status Problem Esophageal reflux 530.81 Active Problem Essential hypertension, benign 401.1 Active Problem Contact dermatitis and other eczema, due to unspecified cause 692.9 Active Problem Encounter for long-term (current) use of other medications V58.69 Active Problem Dermatophytosis of nail 110.1 Active Problem CAD (coronary artery disease) 414.00 Active Problem Chest pain, unspecified 786.50 Active Problem Dermatophytosis of the body 110.5 Active Problem Carpal tunnel syndrome 354.0 Active Problem Memory loss 780.93 Active Problem Unspecified concussion 850.9 Active Problem Other and unspecified hyperlipidemia 272.4 Active Problem Unspecified hypertrophic and atrophic condition of skin 701.9 Active Problem Contusion of unspecified site 924.9 Active Problem Postprocedural percutaneous transluminal coronary angioplasty status V45.82 Active Problem Unspecified essential hypertension 401.9 Active Problem Special screening for malignant neoplasms, colon V76.51 Active Problem Unspecified arthropathy, site unspecified 716.90 Active Medications No Known Medications Results No Known Results Summary Purpose eClinicalWorks Submission
--- OUTSIDE RECORDS SUMMARY | 2018-05-13 18:19 | XMS REPORT ---
Author Author GURMEET NAYAK [facility] Address [address] [place] [address] Care Team Providers Care Material Control Analyst Name Role Phone GURMEET NAYAK Unavailable PROBLEMS Type Condition ICD9-CM Code LMV88-MW Code Onset Dates Condition Status SNOMED Code Problem GERD (gastroesophageal reflux disease) K21.9 Active 760060167 Problem CAD (coronary artery disease) I25.10 Active 49816883 Problem Essential hypertension I10 Active 14719335 Problem Overweight (BMI 25.0-29.9) E66.3 Active 127607956 Problem Hyperlipemia E78.5 Active 32987152 Problem BPH (benign prostatic hyperplasia) N40.0 Active 014787594 Problem Prediabetes R73.03 Active 735458892 Problem Neuropathy G62.9 Active 573013823 ALLERGIES No Known Allergies ENCOUNTERS Encounter Location Date Diagnosis [place] [id number] [place] [address] 15900- 5305 Dec, Prediabetes R73.03 ; Essential hypertension I10 ; Hyperlipidemia E78.5 ; GERD (gastroesophageal reflux disease) K21.9 ; Neuropathy G62.9 and Overweight (BMI 25.0-29.9) E66.3 [place] [id number] [place] [address] 54228- 5152 Sep, HTN (hypertension) I10 ; Hyperlipidemia E78.5 ; GERD ( gastroesophageal reflux disease) K21.9 ; Neuropathy G62.9 ; Prediabetes R73.03 and BPH (benign prostatic hyperplasia) N40.0 [facility] [id number] [place] [address] 64133- 8681 Aug, [facility] [id number] [place] [address] 66804- 1338 Aug, Prediabetes R73.03 ; HTN (hypertension) I10 ; Hyperlipidemia E78.5 ; BPH (benign prostatic hyperplasia) N40.0 and Neuropathy G62.9 [facility] [id number] [place] [address] [id number] Jul, Encounter for dental examination Z01.20 [facility] [id number] [place] [address] [id number] Jul, Dental examination Z01.20 [facility] [address] 91680- 1006 Jul, CAD (coronary artery disease) I25.10 ; Hyperlipidemia E78.5 ; HTN (hypertension) I10 and Type 2 diabetes mellitus without complications E11.9 [facility] [id number] [place] [address] [id number] Apr, Dental examination Z01.20 [facility] [id number] [place] [address] 387451- 4783 Apr, [facility] [address] [id number] [id number] Apr, Gastroenteritis K52.9 [facility] [address] 467708- 7754 February, [facility] [id number] [place] [address] [id number] 3888 February, Prediabetes R73.03 ; HTN (hypertension) I10 ; Hyperlipidemia E78.5 and GERD (gastroesophageal reflux disease) K21.9 [facility] [id number] [place] [address] [id number] February, Prediabetes R73.03 ; HTN (hypertension) I10 ; Hyperlipidemia E78.5 ; GERD (gastroesophageal reflux disease) K21.9 ; BPH ( benign prostatic hyperplasia) N40.0 and Neuropathy G62.9 [facility] [id number] [place] [address] 127151- 1471 February, [facility] [id number] [place] [address] [id number] Jan, Encounter for dental examination Z01.20 [facility] [id number] [place] [address] 37304- 2292 Jan, [facility] [id number] [place] [address] 19559- 5922 Jan, CAD (coronary artery disease) I25.10 ; Hyperlipidemia E78.5 ; Hypertension I10 and Type 2 diabetes mellitus without complications E11.9 [facility] [address] 22771- 5305 09 Nov, 2016 Hypertension I10 ; Hyperlipidemia E78.5 ; Prediabetes R73.03 ; BPH (benign prostatic hyperplasia) N40.0 and Neuropathy G62.9 [facility] [id number] [place] [address] 78190- 0449 Nov, [place] [address] 49155- 7040 Oct, Encounter for dental examination Z01.20 [facility] [id number] [place] [address] 40112- 8721 Sep, [facility] [id number] [place] [address] 30943- 4376 Sep, [facility] [id number] [place] [address] 13176- 5670 Aug, [facility] [id number] [place] [address] 38408- 7678 Aug, CAD (coronary artery disease) I25.10 ; Hypertension I10 ; Hyperlipemia E78.5 ; Type 2 diabetes mellitus without complications E11.9 and exterminator current use of insulin Z79.4 [facility] [id number] [place] [address] 38588- 8440 Jul, [facility] [id number] [place] [address] [phone] Jul, Encounter for dental examination Z01.20 [facility] [id number] [place] [address] 79384 2546 07 Jul, 2016 Prediabetes R73.03 ; HTN (hypertension) I10 ; Hyperlipidemia E78.5 ; CAD (coronary artery disease) I25.10 ; GERD ( gastroesophageal reflux disease) K21.9 ; Neuropathy G62.9 and BPH (benign prostatic hyperplasia) N40.0 [place] [id number] [place] [address] 28030- 8156 Jun, [facility] [address] [id number] Apr, Encounter for dental examination Z01.[address] 00935- 8296 February, CAD (coronary artery disease) I25.10 ; Hypertension I10 ; Hyperlipemia E78.5 and Anxiety F41.9 [place] [id number] [place] [address] [id number] Jan, Encounter for dental examination Z01.20 [place] [id number] [place] [address] [phone] Dec, [place] [id number] [place] [address] [id number] Dec, HTN (hypertension) I10 ; Hyperlipidemia E78.5 ; CAD ( coronary artery disease) I25.10 ; GERD (gastroesophageal reflux disease) K21.9 ; BPH (benign prostatic hyperplasia) N40.0 and Encounter for screening colonoscopy Z12.11 [place] [id number] [place] [address] [phone]- 1976 Aug, CAD (coronary artery disease) I25.10 ; Hypertension I10 ; Anxiety F41.9 and Hyperlipemia E78.5 [facility] [id number] [place] [address] [id number] Jul, Encounter for dental examination Z01.20 [place] [id number] [place] [address] 64201- 5176 Jul, [place] [address] [id number] [id number] Mar, Dental examination V72.2 [facility] [id number] [place] [address] 74773- 4843 February, [facility] [address] [address]- 7321 February, Other and unspecified hyperlipidemia 272.4 ; Unspecified essential hypertension 401.9 and CAD (coronary artery disease) 414.00 [facility] [address] [place] [address] 28062- 5157 February, Unspecified essential hypertension 401.9 ; Other and unspecified hyperlipidemia 272.4 ; CAD (coronary artery disease) 414.00 and Fatigue 780.79 [facility] [address] [address]- 3964 Jan, [facility] [id number] [place] [address] 20672- 6187 Jan, [facility] [address] [address]- 9448 Nov, [facility] [address] [address]- 8504 Nov, [facility] [address] [address]- 9318 Nov, [facility] [address] [address]- 7508 Nov, [facility] [id number] [address]- 9173 Sep, [facility] [id number] [place] [address] 82639- 9229 Sep, [facility] [address]- 0372 Sep, [facility] [id number] [place] [address] 31319- 8545 Sep, [facility] [place] [facility] [address] [id number] [place] [address]- 6605 Sep, [facility] [place] [facility] [address] [id number] [place] 3481 Sep, [facility] [place] [facility] [address] [id number] [place] [address]- 4335 Aug, [facility] [place] [facility] [address] [id number] [place] [address]- 3122 Aug, [facility] [place] [facility] [address] [id number] [place] [address]- 9409 Aug, [facility] [place] [facility] [address] [id number] [place] [address]- 0552 Aug, [facility] [place] [facility] [address] [id number] [place] [address]- 6806 Jul, [facility] [place] [facility] [address] [id number] [place] [address]- 4050 Jul, [facility] [place] [facility] [address] [id number] [place] [address]- 6622 Jul, [facility] [place] [facility] [address] [id number] [place] [address]- 5947 Jul, [facility] [place] [facility] [address] [id number] [place] [address]- 3849 29 Jun, 2014 [facility] [place] [facility] [address] [id number] [place] [address]- 8419 29 Jun, 2014 [facility] [place] [facility] [address] [id number] [place] [address]- 5734 23 Jun, 2014 [facility] [place] [facility] [address] [id number] [place] [address]- 2570 23 Jun, 2014 [facility] [place] [facility] [address] [id number] [place] [address]- 6274 22 Jun, 2014 [facility] [place] [facility] [address] [id number] [place] [address]- 7125 22 Jun, 2013 [facility] [address] [id number] [place] [address]- 4049 18 Jun, 2014 [facility] [place] [facility] [address] [id number] [place] [address]- 3912 18 Jun, 2014 [facility] [address] [id number] [place] [address]- 6292 Mar, [facility] [place] [facility] [address] [id number] [place] [address]- 4087 Mar, [facility] [address] [id number] [place] [address]- 0378 Jan, [facility] [address] [id number] [place] [address]- 0551 Jan, [facility] [address] [id number] [place] [address]- 5160 Oct, [facility] [address] [id number] [place] [address]- 9166 Oct, [facility] [address] [id number] [place] [address]- 1375 17 Jun, 2013 [facility] [address] [id number] [place] [address]- 9891 17 Jun, 2012 [facility] [place] [facility] [address] [id number] [place] [address]- 7543 16 Jun, 2012 [facility] [address] [id number] [place] [address]- 2343 16 Jun, 2012 [facility] [place] [facility] [address] [id number] [place] [address]- 1498 06 Jun, 2012 [facility] [place] [facility] [address] [id number] [place] [address]- 8200 04 Jun, 2012 [facility] [place] [facility] [address] [id number] [place] [address]- 2102 May, [facility] [place] [facility] [address] [id number] [place] [address]- 6218 May, [facility] [place] [facility] [address] [id number] [place] [address]- 0610 Mar, [facility] [place] [facility] [address] [id number] [place] [address]- 9079 February, [facility] [place] [facility] [address] [id number] [place] [address]- 2248 Jan, [facility] [place] [facility] [address] [id number] [place] [address]- 8191 Jan, [facility] [place] [facility] [address] [id number] [place] [address]- 9886 Jan, [facility] [place] [facility] [address] [id number] [place] [address]- 4535 Nov, [facility] [place] [facility] [address] [id number] [place] [address]- 2043 Aug, [facility] [place] [facility] [address] [id number] [place] [address]- 3070 Aug, [facility] [place] [facility] [address] [id number] [place] [address]- 0013 Aug, [facility] [place] [facility] [address] [id number] [place] [address]- 3392 Aug, [facility] [place] [facility] [address] [id number] [place] [address]- 5297 Aug, [facility] [place] [facility] [address] [id number] [place] [address]- 6614 Aug, [facility] [place] [facility] [address] [id number] [place] [address]- 8257 Aug, [facility] [place] [facility] [address] [id number] [place] [address]- 0578 Aug, [facility] [place] [facility] [address] [id number] [place] [address]- 5567 Jun, [facility] [address] [id number] [place] [address]- 8948 February, [facility] [place] [facility] [address] [id number] [place] [address]- 0156 February, [facility] [place] [facility] [address] [id number] [place] [address]- 3116 February, [facility] [place] [facility] [address] [id number] [place] [address]- 8552 Jan, [facility] [place] [facility] [address] [id number] [place] [address]- 1906 Nov, [facility] [place] [facility] [address] [id number] [place] [address]- 8426 Oct, [facility] [address] [id number] [place] [address]- 8187 Oct, [facility] [place] [facility] [address] [id number] [place] [address]- 1280 Sep, [facility] [place] [facility] [address] [id number] [place] [address]- 6172 14 Sep, 2011 [facility] [place] [facility] [address] [facility] [id number] [place] [address]- 0692 14 Sep, 2011 [facility] [place] [facility] [address] [id number] [place] [address]- 2112 13 Sep, 2011 [facility] [place] [facility] [address] [id number] [place] [address]- 2998 11 Sep, 2011 [facility] [place] [facility] [address] [id number] [place] [address]- 2619 08 Sep, 2011 [facility] [place] [facility] [address] [id number] [place] [address]- 5019 12 Jul, 2011 [facility] [place] [facility] [address] [id number] [place] [address]- 8498 Jul, [facility] [place] [facility] [address] [facility] [id number] [place] [id number]- 0842 Mar, IMMUNIZATIONS No Known Immunizations SOCIAL HISTORY Never Assessed REASON FOR VISIT PLAN OF CARE Activity Details Follow Up 3 Months Reason:Perio Maint VITAL SIGNS Heart Rate 88 bpm 2017-08-12 Blood pressure systolic 123 mmHg 2017-08-12 Blood pressure diastolic 79 mmHg 2017-08-12 MEDICATIONS Medication Instructions Dosage Frequency Start Date End Date Duration Status Aspirin by Oral route Nov, Active Multi Vitamin Mens Orally Once a day 1 tablet 24h Active Fish Oil Aug, Active Tamsulosin HCl 0.4 MG Orally Once a day 1 capsule 30 minutes after the same meal each day 24h 90 days Active MetFORMIN HCl ER 500 mg Orally 2 times a day Take one tablet with meals twice a day 12h Dec, 90 days Active Metoprolol Succinate 25 mg by oral route Once a day 1 tablet by Oral route 1 time per day 24h Nov, Nov, 90 days Active Pantoprazole Sodium 40 mg Orally Once a day 1 tablet 24h Aug, 90 days Active RESULTS No Results PROCEDURES Procedure Date Ordered Result Body Site Periodontal maint procedures Aug 12, 2017 TOPICAL FLUORIDE VARNISH Aug 12, 2017 INSTRUCTIONS MEDICATIONS ADMINISTERED No Known Medications MEDICAL (GENERAL) HISTORY Type Description Date Medical History hyperlipidemia Medical History hypertension Medical History CAD w/stents x 2 RCA Medical History BPH Medical History GERD Surgical History Surgery on right fingers Surgical History Stents placed- Dr Armstrong 10/17- ([id number]) Hospitalization History blocked artery with stent placement 10/17/2012
--- OUTSIDE RECORDS SUMMARY | 2018-05-13 18:19 | XMS REPORT ---
Author Author KEVIN SCHREIBER [facility] Address [address] [place] [address] Phone Unavailable Care Team Providers Care Ui Software Engineer Name Role Phone KEVIN SCHREIBER Unavailable Unavailable PROBLEMS Type Condition ICD9-CM Code ZOY40-SD Code Onset Dates Condition Status SNOMED Code Problem GERD (gastroesophageal reflux disease) K21.9 Active 672624839 Problem CAD (coronary artery disease) I25.10 Active 92111290 Problem Essential hypertension I10 Active 75842305 Problem Overweight (BMI 25.0-29.9) E66.3 Active 931768894 Problem Hyperlipemia E78.5 Active 40100265 Problem BPH (benign prostatic hyperplasia) N40.0 Active 016489483 Problem Prediabetes R73.03 Active 416902739 Problem Neuropathy G62.9 Active 509309977 ALLERGIES No Known Allergies ENCOUNTERS Encounter Location Date Diagnosis [place] [id number] [place] [address] 18906- 1470 Dec, Prediabetes R73.03 ; Essential hypertension I10 ; Hyperlipidemia E78.5 ; GERD (gastroesophageal reflux disease) K21.9 ; Neuropathy G62.9 and Overweight (BMI 25.0-29.9) E66.3 [place] [id number] [place] [address] 94931- 7784 Sep, HTN (hypertension) I10 ; Hyperlipidemia E78.5 ; GERD ( gastroesophageal reflux disease) K21.9 ; Neuropathy G62.9 ; Prediabetes R73.03 and BPH (benign prostatic hyperplasia) N40.0 [facility] [id number] [place] [address] 06371- 2077 Aug, [place] [id number] [place] [address] 13029- 0312 Aug, Prediabetes R73.03 ; HTN (hypertension) I10 ; Hyperlipidemia E78.5 ; BPH (benign prostatic hyperplasia) N40.0 and Neuropathy G62.9 [facility] [address] [id number] Jul, Encounter for dental examination Z01.20 [facility] [id number] [place] [address] [phone] Jul, Dental examination Z01.20 [facility] [id number] [place] [address] 09728- 2546 Jul, CAD (coronary artery disease) I25.10 ; Hyperlipidemia E78.5 ; HTN (hypertension) I10 and Type 2 diabetes mellitus without complications E11.9 [facility] [id number] [place] [address] [phone] Apr, Dental examination Z01.20 [facility] [id number] [place] [address] 38594- 2466 Apr, [facility] [id number] [place] [address] 33867- 2266 Apr, Gastroenteritis K52.9 [facility] [id number] [place] [address] 46588- 6116 February, [facility] [id number] [place] [address] 44669- 1056 February, Prediabetes R73.03 ; HTN (hypertension) I10 ; Hyperlipidemia E78.5 and GERD (gastroesophageal reflux disease) K21.9 [facility] [id number] [place] [address] 82574- 5016 February, [facility] [id number] [place] [address] 25785- 8286 February, Prediabetes R73.03 ; HTN (hypertension) I10 ; Hyperlipidemia E78.5 ; GERD (gastroesophageal reflux disease) K21.9 ; BPH ( benign prostatic hyperplasia) N40.0 and Neuropathy G62.9 [facility] [id number] [id number] Jan, Encounter for dental examination Z01.20 [facility] [address] [place] [address] 94531- 1794 Jan, [facility] [id number] [place] [address] 03565- 0406 07 Jan, 2017 CAD (coronary artery disease) I25.10 ; Hyperlipidemia E78.5 ; Hypertension I10 and Type 2 diabetes mellitus without complications E11.9 [facility] [id number] [place] [address] 99228- 0870 09 Nov, 2016 Hypertension I10 ; Hyperlipidemia E78.5 ; Prediabetes R73.03 ; BPH (benign prostatic hyperplasia) N40.0 and Neuropathy G62.9 [place] [id number] [place] [address] 45556- 6551 Nov, [facility] [id number] [place] [address] 13105- 6110 Oct, Encounter for dental examination Z01.20 [facility] [id number] [place] [address] 21456- 2824 Sep, [facility] [id number] [place] [address] 54852- 4831 Sep, [facility] [id number] [place] [address] 81495- 1855 Aug, [facility] [id number] [place] [address] 92466- 5693 Aug, CAD (coronary artery disease) I25.10 ; Hypertension I10 ; Hyperlipemia E78.5 ; Type 2 diabetes mellitus without complications E11.9 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 [facility] [id number] [place] [address] 24718- 7749 Jul, [place] [address] [place] [address] [phone] Jul, Encounter for dental examination Z01.20 [facility] [id number] [place] [address] [phone] Jul, Prediabetes R73.03 ; HTN (hypertension) I10 ; Hyperlipidemia E78.5 ; CAD (coronary artery disease) I25.10 ; GERD ( gastroesophageal reflux disease) K21.9 ; Neuropathy G62.9 and BPH (benign prostatic hyperplasia) N40.0 [facility] [id number] [place] [address] [phone] [phone] Jun, [facility] [id number] [place] [address] [phone] Apr, Encounter for dental examination Z01.[address] 444540- 3196 February, CAD (coronary artery disease) I25.10 ; Hypertension I10 ; Hyperlipemia E78.5 and Anxiety F41.9 [place] [id number] [place] [phone] Jan, Encounter for dental examination Z01.20 [place] [id number] [place] [address] [phone] Dec, [place] [id number] [place] [address] 67360- 9146 Dec, HTN (hypertension) I10 ; Hyperlipidemia E78.5 ; CAD ( coronary artery disease) I25.10 ; GERD (gastroesophageal reflux disease) K21.9 ; BPH (benign prostatic hyperplasia) N40.0 and Encounter for screening colonoscopy Z12.11 [place] [address] [place] [address] [phone]- [phone] Aug, CAD (coronary artery disease) I25.10 ; Hypertension I10 ; Anxiety F41.9 and Hyperlipemia E78.5 [facility] [id number] [place] [address] [phone] Jul, Encounter for dental examination Z01.20 [facility] [id number] [place] [address] [phone]- [phone] Jul, [facility] [address] [id number] Mar, Dental examination V72.2 [facility] [address], [place] [address]- 4656 February, [facility] [address], [place] [address]- 2598 February, Other and unspecified hyperlipidemia 272.4 ; Unspecified essential hypertension 401.9 and CAD (coronary artery disease) 414.00 [facility] [address] [address]- 9190 February, Unspecified essential hypertension 401.9 ; Other and unspecified hyperlipidemia 272.4 ; CAD (coronary artery disease) 414.00 and Fatigue 780.79 [facility] [address] [address]- 6604 Jan, [facility] [address] [address]- 7808 Jan, [facility] [address], [place] [address]- 6285 Nov, [facility] [address], [place] [address]- 6824 Nov, [facility] [address], [place] [address]- 4698 Nov, [facility] [address], [place] [address]- 7286 Nov, [facility] [address], [place] [address]- 4057 Sep, [facility] [address] [id number] 9978 Sep, [facility] [address] [id number] 4968 Sep, [facility] [address] 9210 Sep, [facility] [place] [facility] [address] [id number] [place] 5238 Sep, [facility] [place] [facility] [address] [id number] [place] [address]- 4652 Sep, [facility] [place] [facility] [address] [id number] [place] [address]- 8762 Aug, [facility] [place] [facility] [address] [id number] [place] [address]- 3681 Aug, [facility] [place] [facility] [address] [id number] [place] 3463 Aug, [facility] [place] [facility] [address] [id number] [place] [address]- 1658 Aug, [facility] [place] [facility] [address] [id number] [place] [address]- 8775 Jul, [facility] [place] [facility] [address] [id number] [place] [address]- 2389 Jul, [facility] [place] [facility] [address] [id number] [place] [address]- 3546 Jul, [facility] [place] [facility] [address] [id number] [place] [address]- 9600 Jul, [facility] [place] [facility] [address] [id number] [place] [address]- 0469 29 Jun, 2014 [facility] [place] [facility] [address] [id number] [place] [address]- 8900 29 Jun, 2014 [facility] [place] [facility] [address] [id number] [place] [address]- 3956 23 Jun, 2014 [facility] [place] [facility] [address] [id number] [place] [address]- 7682 23 Jun, 2014 [facility] [place] [facility] [address] [id number] [place]- 9580 22 Jun, 2014 [facility] [place] [facility] [address] [id number] [address]- 5104 22 Jun, 2014 [facility] [place] [facility] [address] [id number] [place] [address]- 7369 18 Jun, 2014 [facility] [place] [facility] [address] [id number] [place] [address]- 9690 18 Jun, 2014 [facility] [place] [facility] [address] [id number] [place] [address]- 3517 Mar, [facility] [place] [facility] [address] [id number] [place] [address]- 2439 Mar, [facility] [place] [facility] [address] [id number] [place] [address]- 5795 Jan, [facility] [place] [facility] [address] [id number] [place] [address]- 3442 Jan, [facility] [place] [facility] [address] [id number] [place] [address]- 2075 Oct, [facility] [place] [facility] [address] [id number] [place] [address]- 2900 Oct, [facility] [place] [facility] [address] [id number] [place] [address]- 5206 17 Jun, 2013 [facility] [place] [facility] [address] [id number] [place] [address]- 1903 17 Jun, 2013 [facility] [place] [facility] [address] [id number] [place] [address]- 1056 16 Jun, 2012 [facility] [place] [facility] [address] [id number] [place] [address]- 4358 16 Jun, 2012 [facility] [place] [facility] [address] [id number] [place] [address]- 0402 06 Jun, 2012 [facility] [place] [facility] [address] [id number] [place] [address]- 9348 04 Jun, 2013 [facility] [place] [facility] [address] [id number] [place] [address]- 6717 May, [facility] [place] [facility] [address] [id number] [place] [address]- 5916 May, [facility] [address] [id number] [place] [address]- 6716 Mar, [facility] [place] [facility] [address] [id number] [place] [address]- 9245 February, [facility] [place] [facility] [address] [id number] [place] [address]- 3586 Jan, [facility] [place] [facility] [address] [id number] [place] [address]- 8786 Jan, [facility] [place] [facility] [address] [id number] [place] [address]- 5564 Jan, [facility] [place] [facility] [address] [id number] [place] [address]- 0276 Nov, [facility] [place] [facility] [address] [id number] [place] [address]- 0685 Aug, [facility] [place] [facility] [address] [id number] [place] [address]- 9007 Aug, [facility] [place] [facility] [address] [id number] [place] [address]- 6921 Aug, [facility] [place] [facility] [address] [id number] [place] [address]- 5999 Aug, [facility] [place] [facility] [address] [id number] [place] [address]- 4205 Aug, [facility] [place] [facility] [address] [id number] [place] [address]- 0542 Aug, [facility] [place] [facility] [address] [id number] [place]- 0675 Aug, [facility] [place] [facility] [address] [id number] [place] 0550 Aug, [facility] [place] [facility] [address] [id number] [place] [address]- 6187 Jun, [facility] [place] [facility] [address] [id number] [place] [address]- 9668 February, [facility] [place] [facility] [address] [id number] [place] [address]- 5186 February, [facility] [place] [facility] [address] [id number] [place] [address]- 2666 February, [facility] [place] [facility] [address] [id number] [place] [address]- 5403 Jan, [facility] [place] [facility] [address] [id number] [place] [address]- 8906 Nov, [facility] [place] [facility] [address] [id number] [place] [address]- 9626 Oct, [facility] [place] [facility] [address] [id number] [place] [address]- 0695 Oct, [facility] [place] [facility] [address] [id number] [place] [address]- 5987 Sep, [facility] [place] [facility] [address] [id number] [place] [address]- 5658 14 Sep, 2011 [facility] [place] [facility] [address] [id number] [place] [address]- 5829 14 Sep, 2011 [facility] [place] [facility] [address] [id number] [place] [address]- 6748 13 Sep, 2011 [facility] [place] [facility] [address] [id number], [place] [address]- 1026 Sep, [facility] [place] [facility] [address] [id number] [place] [address]- 6505 08 Sep, 2011 [facility] [place] [facility] [address] [id number] [place] [address]- 2914 12 Jul, 2011 [facility] [place] [facility] [address] [id number] [place] [address]- 9624 Jul, [facility] [place] [facility] [address] [facility] [id number] [place] [address]- 0199 10 Mar, 2011 IMMUNIZATIONS No Known Immunizations SOCIAL HISTORY Never Assessed REASON FOR VISIT 3 mo recall/mara PLAN OF CARE Activity Details Follow Up dior Reason:restore VITAL SIGNS Blood pressure systolic 125 mmHg 2017-05-10 Blood pressure diastolic 83 mmHg 2017-05-10 MEDICATIONS No Known Medications RESULTS No Results PROCEDURES Procedure Date Ordered Result Body Site PERIODIC ORAL EXAMINATION May 10, 2017 Periodontal maint procedures May 10, 2017 TOPICAL FLUORIDE VARNISH May 10, 2017 INSTRUCTIONS MEDICATIONS ADMINISTERED No Known Medications MEDICAL (GENERAL) HISTORY Type Description Date Medical History hyperlipidemia Medical History hypertension Medical History CAD w/stents x 2 RCA Medical History BPH Medical History GERD Surgical History Surgery on right fingers Surgical History Stents placed- Dr Armstrong 10/17- ([id number]) Hospitalization History blocked artery with stent placement 10/17/2012
--- OUTSIDE RECORDS SUMMARY | 2018-05-13 18:19 | XMS REPORT ---
Author Author LAURENT LEIGH Organization [facility] Address [address] [place] [address] Care Team Providers Care Asset Recovery Specialist Name Role Phone LAURENT LEIGH Unavailable PROBLEMS Type Condition ICD9-CM Code RKY94-GJ Code Onset Dates Condition Status SNOMED Code Problem BPH (benign prostatic hyperplasia) N40.0 Active 882998796 Problem CAD (coronary artery disease) I25.10 Active 28667203 Problem GERD (gastroesophageal reflux disease) K21.9 Active 840826545 Problem Encounter for screening colonoscopy Z12.11 Active 904606198 Problem Neuropathy G62.9 Active 771280991 Problem Prediabetes R73.03 Active 973662763 Problem HTN (hypertension) I10 Active 28716599 Problem Hyperlipidemia E78.5 Active 81203232 Problem Hypertension I10 Active 45315212 Problem Hyperlipemia E78.5 Active 89423439 ALLERGIES No Known Allergies SOCIAL HISTORY No smoking Hx information available PLAN OF CARE VITAL SIGNS MEDICATIONS No Known Medications RESULTS No Results PROCEDURES No Known procedures IMMUNIZATIONS No Known Immunizations
--- OUTSIDE RECORDS SUMMARY | 2018-05-13 18:19 | XMS REPORT ---
Author Author GURMEET NAYAK [employer] Address Unknown Phone Unavailable Care Team Providers Care Cell Operator Name Role Phone GURMEET NAYAK CP Unavailable Allergies, Adverse Reactions, Alerts Substance Reaction Event Type N.K.D.A. Info Not Available Non Drug Allergy Problems Problem Type Condition Code Onset Dates Condition Status Assessment Encounter for dental examination Z01.20 Active Problem Hyperlipidemia E78.5 Active Problem CAD (coronary artery disease) I25.10 Active Problem HTN (hypertension) I10 Active Problem Encounter for screening colonoscopy Z12.11 Active Problem Encounter for dental examination Z01.20 Active Problem GERD (gastroesophageal reflux disease) K21.9 Active Problem BPH (benign prostatic hyperplasia) N40.0 Active Medications Medication Code System Code Instructions Start Date End Date Status Dosage Fish Oil [facility] [address]-12 Aug 31, 2012 not defined Aspirin [facility] [address]-65 Nov 24, 2011 by Oral route Pravastatin Sodium [facility] [address]-24 40 MG Orally Once a day February 22, 2015 1 tablet Multi Vitamin Mens [facility] 12366-24082 Orally Once a day 1 tablet Pantoprazole Sodium [facility] [address]-15 40 MG Orally Once a day Aug 23, 2015 1 tablet Metoprolol Succinate [facility] 0 25 mg by oral route Once a day Nov 26, 2014 1 tablet by Oral route 1 time per day Procedures Procedure Coding System Code Date Periodontal maint procedures CPT-4 D4910 April 23, 2016 Vital Signs Date/Time: April 23, 2016 Blood Pressure Diastolic 78 mmHg Blood Pressure Systolic 125 mmHg Cardiac Monitoring Heart Rate 73 bpm Results No Known Results Summary Purpose [employer]ClinicalWorks Submission
--- OUTSIDE RECORDS SUMMARY | 2018-05-13 18:19 | XMS REPORT ---
Author Author CHELSIE ARCHER [facility] Address Unknown Care Team Providers Care Brim Stretching Machine Operator Name Role Phone CHELSIE ARCHER Unavailable PROBLEMS Type Condition ICD9-CM Code OEH14-YZ Code Onset Dates Condition Status SNOMED Code Problem GERD (gastroesophageal reflux disease) K21.9 Active 223017689 Problem CAD (coronary artery disease) I25.10 Active 08358528 Problem Essential hypertension I10 Active 16193898 Problem Overweight (BMI 25.0-29.9) E66.3 Active 377206166 Problem Hyperlipemia E78.5 Active 69061483 Problem BPH (benign prostatic hyperplasia) N40.0 Active 366721515 Problem Prediabetes R73.03 Active 829861809 Problem Neuropathy G62.9 Active 307967750 ALLERGIES No Known Allergies ENCOUNTERS Encounter Location Date Diagnosis [place] [id number] [place] [address] 68840- 0726 Dec, Prediabetes R73.03 ; Essential hypertension I10 ; Hyperlipidemia E78.5 ; GERD (gastroesophageal reflux disease) K21.9 ; Neuropathy G62.9 and Overweight (BMI 25.0-29.9) E66.3 [place] [id number] [place] [address] 52856- 2040 Sep, HTN (hypertension) I10 ; Hyperlipidemia E78.5 ; GERD ( gastroesophageal reflux disease) K21.9 ; Neuropathy G62.9 ; Prediabetes R73.03 and BPH (benign prostatic hyperplasia) N40.0 [facility] [id number] [place] [address] 37447- 6455 Aug, [place] [id number] [place] [address] 86870- 4530 Aug, Prediabetes R73.03 ; HTN (hypertension) I10 ; Hyperlipidemia E78.5 ; BPH (benign prostatic hyperplasia) N40.0 and Neuropathy G62.9 [facility] [address] [id number] Jul, Encounter for dental examination Z01.20 [facility] [address] [place] [address] [phone] Jul, Dental examination Z01.20 [facility] [id number] [place] [address] 60973- 2546 Jul, CAD (coronary artery disease) I25.10 ; Hyperlipidemia E78.5 ; HTN (hypertension) I10 and Type 2 diabetes mellitus without complications E11.9 [facility] [id number] [place] [address] [id number] Apr, Dental examination Z01.20 [facility] [id number] [place] [address] 83677- 7296 Apr, [facility] [id number] [place] [address] 194659- 7846 Apr, Gastroenteritis K52.9 [facility] [id number] [place] [address] 111997- 8686 February, [facility] [id number] [place] [address] 270967- 8786 February, Prediabetes R73.03 ; HTN (hypertension) I10 ; Hyperlipidemia E78.5 and GERD (gastroesophageal reflux disease) K21.9 [facility] [id number] [place] [address] 516078- 1926 February, Prediabetes R73.03 ; HTN (hypertension) I10 ; Hyperlipidemia E78.5 ; GERD (gastroesophageal reflux disease) K21.9 ; BPH ( benign prostatic hyperplasia) N40.0 and Neuropathy G62.9 [facility] [id number] [place] [address] 58171- 3656 February, [facility] [id number] [id number] Jan, Encounter for dental examination Z01.20 [facility] [address] [place] [address] 40366- 0288 Jan, [facility] [id number] [place] [address] 13111- 2860 Jan, CAD (coronary artery disease) I25.10 ; Hyperlipidemia E78.5 ; Hypertension I10 and Type 2 diabetes mellitus without complications E11.9 [facility] [id number] [place] [address] 53598- 8574 Nov, Hypertension I10 ; Hyperlipidemia E78.5 ; Prediabetes R73.03 ; BPH (benign prostatic hyperplasia) N40.0 and Neuropathy G62.9 [place] [id number] [place] [address] 00205- 0579 Nov, [facility] [id number] [place] [address] 79501- 4312 Oct, Encounter for dental examination Z01.20 [facility] [id number] [place] [address] 05191- 9889 Sep, [facility] [id number] [place] [address] 05989- 0163 Sep, [facility] [id number] [place] [address] 23793- 0818 Aug, [facility] [id number] [place] [address] 08224- 2251 Aug, CAD (coronary artery disease) I25.10 ; Hypertension I10 ; Hyperlipemia E78.5 ; Type 2 diabetes mellitus without complications E11.9 and group home current use of insulin Z79.4 [facility] [id number] [place] [address] 99010- 1293 Jul, [place] [address] [place] [address] [phone] Jul, Encounter for dental examination Z01.20 [facility] [id number] [place] [address] [phone]- 1858 Jul, Prediabetes R73.03 ; HTN (hypertension) I10 ; Hyperlipidemia E78.5 ; CAD (coronary artery disease) I25.10 ; GERD ( gastroesophageal reflux disease) K21.9 ; Neuropathy G62.9 and BPH (benign prostatic hyperplasia) N40.0 [facility] [id number] [place] [address] [phone]- 6326 Jun, [facility] [address] [id number] Apr, Encounter for dental examination Z01.20 [place] [address] 747802- 2016 February, CAD (coronary artery disease) I25.10 ; Hypertension I10 ; Hyperlipemia E78.5 and Anxiety F41.9 [place] [id number] [place] [address] [phone] Jan, Encounter for dental examination Z01.20 [place] [id number] [place] [address] [phone]- 8416 Dec, [address] 76291- 4321 Dec, HTN (hypertension) I10 ; Hyperlipidemia E78.5 ; CAD ( coronary artery disease) I25.10 ; GERD (gastroesophageal reflux disease) K21.9 ; BPH (benign prostatic hyperplasia) N40.0 and Encounter for screening colonoscopy Z12.11 [place] [id number] [place] [address] [phone]- 9820 Aug, CAD (coronary artery disease) I25.10 ; Hypertension I10 ; Anxiety F41.9 and Hyperlipemia E78.5 [facility] [id number] [place] [address] [phone] Jul, Encounter for dental examination Z01.20 [facility] [id number] [place] [address] [phone]- 0676 Jul, [facility] [address] [place] [phone] Mar, Dental examination V72.2 [facility] [address], [place] [address]- 4840 February, [facility] [address] [address] 3143 February, Other and unspecified hyperlipidemia 272.4 ; Unspecified essential hypertension 401.9 and CAD (coronary artery disease) 414.00 [facility] [address] [address]- 3668 February, Unspecified essential hypertension 401.9 ; Other and unspecified hyperlipidemia 272.4 ; CAD (coronary artery disease) 414.00 and Fatigue 780.79 [facility] [address] [phone]- 7040 Jan, [facility] [id number] [address]- 8177 Jan, [facility] [address], [place] [address]- 4622 Nov, [facility] [address], [place] [address]- 7517 Nov, [facility] [address], [place] [address]- 9008 Nov, [facility] [address], [place] [address]- 7334 Nov, [facility] [id number], [place] [address]- 5675 Sep, [facility] [address]- 5759 Sep, [facility] [address] [address]- 7765 Sep, [facility] [address] 4534 Sep, [facility] [place] [facility] [address] [id number] [place] [address]- 8329 Sep, [facility] [place] [facility] [address] [id number] [place]- 5073 Sep, [facility] [place] [facility] [address] [id number] [place]- 4677 Aug, [facility] [place] [facility] [address] [id number] [place] [address]- 2803 Aug, [facility] [place] [facility] [address] [id number] [place] [address]- 2378 Aug, [facility] [place] [facility] [address] [id number] [place] [address]- 1225 Aug, [facility] [place] [facility] [address] [id number] [place] [address]- 1626 Jul, [facility] [place] [facility] [address] [id number] [place] [address]- 2168 Jul, [facility] [place] [facility] [address] [id number] [place] [address]- 6110 Jul, [facility] [place] [facility] [address] [id number] [place] [address]- 0114 Jul, [facility] [place] [facility] [address] [id number] [place] [address]- 8402 29 Jun, 2014 [facility] [place] [facility] [address] [id number] [place] [address]- 6412 29 Jun, 2014 [facility] [place] [facility] [address] [id number] [place] [address]- 9181 23 Jun, 2014 [facility] [place] [facility] [address] [id number] [place] [address]- 1436 23 Jun, 2014 [facility] [place] [facility] [address] [id number] [place] [address]- 6350 22 Jun, 2014 [facility] [place] [facility] [address] [id number] [place] [address]- 3274 22 Jun, 2014 [facility] [place] [facility] [address] [id number] [place] [address]- 7365 18 Jun, 2014 [facility] [place] [facility] [address] [id number] [place] [address]- 2410 18 Jun, 2014 [facility] [place] [facility] [address] [id number] [place] [address]- 9131 Mar, [facility] [place] [facility] [address] [id number] [place] [address]- 7883 Mar, [facility] [place] [facility] [address] [id number] [place] [address]- 9079 Jan, [facility] [place] [facility] [address] [id number] [place] [address]- 7761 Jan, [facility] [place] [facility] [address] [id number] [place] [address]- 1489 Oct, [facility] [place] [facility] [address] [id number] [place] [address]- 2520 Oct, [facility] [place] [facility] [address] [id number] [place] [address]- 0864 17 Jun, 2013 [facility] [place] [facility] [address] [id number] [place] [address]- 3330 17 Jun, 2013 [facility] [place] [facility] [address] [id number], [place] [address]- 6321 16 Jun, 2012 [facility] [place] [facility] [address] [id number], [place] [address]- 3975 16 Jun, 2012 [facility] [place] [facility] [address] [id number] [place] [address]- 6987 06 Jun, 2012 [facility] [place] [facility] [address] [id number] [place] [address]- 6234 04 Jun, 2013 [facility] [place] [facility] [address] [id number] [place] [address]- 6836 May, [facility] [place] [facility] [address] [id number] [place] [address]- 6412 May, [facility] [address] [id number] [place] [address]- 4284 Mar, [facility] [place] [facility] [address] [id number] [place] [address]- 4901 February, [facility] [address] [id number] [place] [address]- 7201 Jan, [facility] [address] [id number] [place] [address]- 1573 Jan, [facility] [address] [id number] [place] [address]- 8916 Jan, [facility] [address] [id number] [place] [address]- 5276 Nov, [facility] [address] [id number] [place] [address]- 4973 Aug, [facility] [address] [id number] [place] [address]- 4674 Aug, [facility] [address] [id number] [place] [address]- 7341 Aug, [facility] [address] [id number] [place] [address]- 0511 Aug, [facility] [address] [id number] [place] [address]- 8181 Aug, [facility] [address] [id number] [place] [address]- 9650 Aug, [facility] [place] [facility] [address] [id number] [place] [address]- 3610 Aug, [facility] [place] [facility] [address] [id number] [place]- 3005 Aug, [facility] [place] [facility] [address] [id number] [place] [address]- 8577 Jun, [facility] [address] [id number] [place] [address]- 5804 February, [facility] [place] [facility] [address] [id number] [place] [address]- 3746 February, [facility] [place] [facility] [address] [id number] [place] [address]- 3868 February, [facility] [place] [facility] [address] [id number] [place] [address]- 3422 Jan, [facility] [place] [facility] [address] [id number] [place] [address]- 9129 Nov, [facility] [place] [facility] [address] [id number] [place] [address]- 9730 Oct, [facility] [place] [facility] [address] [id number] [place] [address]- 8741 Oct, [facility] [place] [facility] [address] [id number] [place] [address]- 6921 Sep, [facility] [place] [facility] [address] [id number] [place] [address]- 9866 14 Sep, 2011 [facility] [place] [facility] [address] [id number] [place] [address]- 5099 14 Sep, 2011 [facility] [place] [facility] [address] [id number], [place] [address]- 0396 13 Sep, 2011 [facility] [place] [facility] [address] [id number], [place] [address]- 4451 Sep, [facility] [place] [facility] [address] [id number] [place] [address]- 4833 08 Sep, 2011 [facility] [place] [facility] [address] [id number], [place] [address]- 4358 12 Jul, 2011 [facility] [place] [facility] [address] [id number] [place] [address]- 1930 Jul, [facility] [place] [facility] [address] [facility] [id number] [place] [address]- 2546 Mar, IMMUNIZATIONS No Known Immunizations SOCIAL HISTORY Never Assessed REASON FOR VISIT filling PLAN OF CARE Activity Details Follow Up prn Reason:3 mo recall. due this month VITAL SIGNS Blood pressure systolic 136 mmHg 2017-08-10 Blood pressure diastolic 87 mmHg 2017-08-10 MEDICATIONS Medication Instructions Dosage Frequency Start Date End Date Duration Status Pantoprazole Sodium 40 mg Orally Once a day 1 tablet 24h Aug, 90 days Active Tamsulosin HCl 0.4 MG Orally Once a day 1 capsule 30 minutes after the same meal each day 24h 90 days Active Multi Vitamin Mens Orally Once a [...] day 24h Nov, Nov, 90 days Active Fish Oil Aug, Active RESULTS No Results PROCEDURES Procedure Date Ordered Result Body Site RESIN COMPOS - 2 SURFACES POSTERIOR Aug 10, 2017 INSTRUCTIONS MEDICATIONS ADMINISTERED No Known Medications MEDICAL (GENERAL) HISTORY Type Description Date Medical History hyperlipidemia Medical History hypertension Medical History CAD w/stents x 2 RCA Medical History BPH Medical History GERD Surgical History Surgery on right fingers Surgical History Stents placed- Dr Armstrong 10/17- ([id number]) Hospitalization History blocked artery with stent placement 10/17/2012
--- OUTSIDE RECORDS SUMMARY | 2018-05-13 18:19 | XMS REPORT ---
Author Author LAURENT LEIGH Organization [facility] Address [address] [place] [address] Care Team Providers Care Lab Technologist Name Role Phone LEIGHKAITY PatinoELE Unavailable PROBLEMS Type Condition ICD9-CM Code [id number] Code Onset Dates Condition Status SNOMED Code Problem Hyperlipidemia E78.5 Active 18372863 Problem Encounter for screening colonoscopy Z12.11 Active 758471799 Problem BPH (benign prostatic hyperplasia) N40.0 Active 335596828 Problem HTN (hypertension) I10 Active 55209899 Problem CAD (coronary artery disease) I25.10 Active 45292708 Problem GERD (gastroesophageal reflux disease) K21.9 Active 630267922 Problem Encounter for dental examination Z01.20 Active 871322535 Problem Type 2 diabetes mellitus without complications E11.9 Active 728795246 Problem Hypertension I10 Active 52340490 Problem Hyperlipemia E78.5 Active 32737675 Problem Neuropathy G62.9 Active 030028488 Problem Prediabetes R73.03 Active 400009764 ALLERGIES No Known Allergies SOCIAL HISTORY Never Assessed PLAN OF CARE Activity Details Follow Up 3 Months Reason:[facility] VITAL SIGNS Height 69 in 2017-02-23 Weight 192.0 lbs 2017-02-23 Temperature 98.0 degrees Fahrenheit 2017-02-23 BMI 28.35 kg/m2 2017-02-23 Blood pressure systolic 128 mmHg 2017-02-23 Blood pressure diastolic 80 mmHg 2017-02-23 MEDICATIONS Medication Instructions Dosage Frequency Start Date End Date Duration Status Pantoprazole Sodium 40 mg Orally Once a day 1 tablet 24h Aug, 90 days Active Multi Vitamin Mens Orally Once a day 1 tablet 24h Active Fish Oil Aug, Active Pravastatin Sodium 40 mg Orally Once a day 1 tablet 24h February, 90 days Active Metoprolol Succinate 25 mg by oral route Once a day 1 tablet by Oral route 1 time per day 24h Nov, Nov, 90 days Active Gabapentin 300 MG Orally Once a day 1 capsule 24h February, 90 days Active MetFORMIN HCl ER 500 mg Orally 2 times a day Take one tablet with meals twice a day 12h Dec, 90 days Active Tamsulosin HCl 0.4 MG Orally Once a day 1 capsule 30 minutes after the same meal each day 24h 90 days Active Aspirin by Oral route Nov, Active RESULTS No Results PROCEDURES No Known procedures IMMUNIZATIONS No Known Immunizations MEDICAL (GENERAL) HISTORY Type Description Date Medical History hyperlipidemia Medical History hypertension Medical History CAD w/stents x 2 RCA Medical History BPH Medical History GERD Surgical History Surgery on right fingers Surgical History Stents placed- Dr Armstrong 10/17- ([id number]) Hospitalization History blocked artery with stent placement 10/17/2012
--- OUTSIDE RECORDS SUMMARY | 2018-05-13 18:19 | XMS REPORT ---
Author Author LAURENT LEIGH Organization [employer] Address Unknown Phone Unavailable Care Team Providers Care Home Care Nurse Name Role Phone LAURENT LEIGH CP Unavailable Allergies No Known Allergies Problems Problem Type Condition Code Onset Dates Condition Status Problem Encounter for screening colonoscopy Z12.11 Active Problem Encounter for dental examination Z01.20 Active Problem Prediabetes R73.03 Active Problem HTN (hypertension) I10 Active Problem Neuropathy G62.9 Active Problem GERD (gastroesophageal reflux disease) K21.9 Active Problem BPH (benign prostatic hyperplasia) N40.0 Active Problem Hyperlipidemia E78.5 Active Problem CAD (coronary artery disease) I25.10 Active Medications No Known Medications Results No Known Results Summary Purpose [employer] Submission
--- OUTSIDE RECORDS SUMMARY | 2018-05-13 18:19 | XMS REPORT ---
Author Author LAURENT LEIGH Organization [facility] Address [address] [place] [address] Care Team Providers Care Harbor Engineer Name Role Phone REESEKAITYLAURENT Unavailable PROBLEMS Type Condition ICD9-CM Code PEX25-DI Code Onset Dates Condition Status SNOMED Code Problem Hyperlipidemia E78.5 Active 91800331 Problem Encounter for screening colonoscopy Z12.11 Active 536090885 Problem BPH (benign prostatic hyperplasia) N40.0 Active 517911049 Problem HTN (hypertension) I10 Active 38486074 Problem CAD (coronary artery disease) I25.10 Active 49269219 Problem GERD (gastroesophageal reflux disease) K21.9 Active 541802346 Problem Encounter for dental examination Z01.20 Active 267482588 Problem Type 2 diabetes mellitus without complications E11.9 Active 948693100 Problem Hypertension I10 Active 18851042 Problem Hyperlipemia E78.5 Active 87694427 Problem Neuropathy G62.9 Active 690817412 Problem Prediabetes R73.03 Active 387306402 ALLERGIES No Information SOCIAL HISTORY Never Assessed [...] Surgical History Stents placed- Dr Armstrong 10/17- ([id number]) Hospitalization History blocked artery with stent placement 10/17/2012
--- OUTSIDE RECORDS SUMMARY | 2018-05-13 18:20 | XMS REPORT ---
Author Author LAURENT LEIGH Organization [facility] Address [address] [place] [address] Care Team Providers Care Silversmith Apprentice Name Role Phone LAURENT LEIGH Unavailable PROBLEMS Type Condition ICD9-CM Code [id number] Code Onset Dates Condition Status SNOMED Code Problem BPH (benign prostatic hyperplasia) N40.0 Active 464509247 Problem CAD (coronary artery disease) I25.10 Active 13199364 Problem GERD (gastroesophageal reflux disease) K21.9 Active 752686447 Problem Encounter for screening colonoscopy Z12.11 Active 477331217 Problem Neuropathy G62.9 Active 664704964 Problem Prediabetes R73.03 Active 407760343 Problem HTN (hypertension) I10 Active 67022362 Problem Hyperlipidemia E78.5 Active 10240278 Problem Hypertension I10 Active 35728257 Problem Hyperlipemia E78.5 Active 80636308 ALLERGIES No Known Allergies SOCIAL HISTORY No smoking Hx information available PLAN OF CARE VITAL SIGNS MEDICATIONS No Known Medications RESULTS No Results PROCEDURES No Known procedures IMMUNIZATIONS No Known Immunizations
--- OUTSIDE RECORDS SUMMARY | 2018-05-13 18:20 | XMS REPORT ---
Author Author LAURENT LEIGH Organization [facility] Address [address] [place] [address] Care Team Providers Care Bank Vault Custodian Name Role Phone LEIGHLAURENT Patino Unavailable PROBLEMS Type Condition ICD9-CM Code OOR52-LR Code Onset Dates Condition Status SNOMED Code Problem GERD (gastroesophageal reflux disease) K21.9 Active 072467704 Problem CAD (coronary artery disease) I25.10 Active 24032817 Problem Essential hypertension I10 Active 32715980 Problem Overweight (BMI 25.0-29.9) E66.3 Active 537803906 Problem Hyperlipemia E78.5 Active 94149414 Problem BPH (benign prostatic hyperplasia) N40.0 Active 297274955 Problem Prediabetes R73.03 Active 744374094 Problem Neuropathy G62.9 Active 651179307 ALLERGIES No Information ENCOUNTERS Encounter Location Date Diagnosis [facility] [id number] [place] [address] 84725- 3097 Dec, Prediabetes R73.03 ; Essential hypertension I10 ; Hyperlipidemia E78.5 ; GERD (gastroesophageal reflux disease) K21.9 ; Neuropathy G62.9 and Overweight (BMI 25.0-29.9) E66.3 [facility] [address] [address] Sep, HTN (hypertension) I10 ; Hyperlipidemia E78.5 ; GERD ( gastroesophageal reflux disease) K21.9 ; Neuropathy G62.9 ; Prediabetes R73.03 and BPH (benign prostatic hyperplasia) N40.0 [facility] [id number] [place] [address] 17132- 5904 Aug, [facility] [id number] [place] [address] 91269- 0379 Aug, Prediabetes R73.03 ; HTN (hypertension) I10 ; Hyperlipidemia E78.5 ; BPH (benign prostatic hyperplasia) N40.0 and Neuropathy G62.9 [facility] [address] [place] [address] [id number] Jul, Encounter for dental examination Z01.20 [facility] [id number] [place] [address] [id number] Jul, Dental examination Z01.20 [facility] [id number] [place] [address] 57943- 8236 Jul, CAD (coronary artery disease) I25.10 ; Hyperlipidemia E78.5 ; HTN (hypertension) I10 and Type 2 diabetes mellitus without complications E11.9 [facility] [id number] [place] [address] [id number] Apr, Dental examination Z01.20 [facility] [id number] [place] [address] 02707- 6066 Apr, [facility] [id number] [place] [address] [id number]- [phone] Apr, Gastroenteritis K52.9 [facility] [id number] [place] [address] 882370- 7578 February, [facility] [id number] [place] [address] [phone]- 0359 February, Prediabetes R73.03 ; HTN (hypertension) I10 ; Hyperlipidemia E78.5 and GERD (gastroesophageal reflux disease) K21.9 [facility] [id number] [place] [address] [phone]- [phone] February, [facility] [id number] [place] [address] 48009- 2693 February, Prediabetes R73.03 ; HTN (hypertension) I10 ; Hyperlipidemia E78.5 ; GERD (gastroesophageal reflux disease) K21.9 ; BPH ( benign prostatic hyperplasia) N40.0 and Neuropathy G62.9 [facility] [id number] [place] [address] [id number] Jan, Encounter for dental examination Z01.20 [facility] [id number] [place] [address] 22084- 8681 Jan, [facility] [id number] [place] [address] 72879- 2710 Jan, CAD (coronary artery disease) I25.10 ; Hyperlipidemia E78.5 ; Hypertension I10 and Type 2 diabetes mellitus without complications E11.9 [facility] [id number] [place] [address] 19325- 8855 09 Nov, 2016 Hypertension I10 ; Hyperlipidemia E78.5 ; Prediabetes R73.03 ; BPH (benign prostatic hyperplasia) N40.0 and Neuropathy G62.9 [facility] [id number] [place] [address] 11974- 6213 Nov, [facility] [address] [address]- 5610 Oct, Encounter for dental examination Z01.20 [facility] [id number] [place] [address] 50205- 0472 Sep, [facility] [id number] [place] [address] 57579- 5034 Sep, [facility] [id number] [place] [address] 78072- 9564 Aug, [facility] [id number] [place] [address] 74151- 3557 Aug, CAD (coronary artery disease) I25.10 ; Hypertension I10 ; Hyperlipemia E78.5 ; Type 2 diabetes mellitus without complications E11.9 and long term care pharmacist current use of insulin Z79.4 [facility] [id number] [place] [address] 38194- 0731 Jul, [facility] [id number] [place] [address] [id number] Jul, Encounter for dental examination Z01.20 [facility] [address] [place] [address] 54814 2546 07 Jul, 2016 Prediabetes R73.03 ; HTN (hypertension) I10 ; Hyperlipidemia E78.5 ; CAD (coronary artery disease) I25.10 ; GERD ( gastroesophageal reflux disease) K21.9 ; Neuropathy G62.9 and BPH (benign prostatic hyperplasia) N40.[address] [address]- 1826 Jun, [facility] [address] [id number] Apr, Encounter for dental examination Z01.[address] 919308- 7896 February, CAD (coronary artery disease) I25.10 ; Hypertension I10 ; Hyperlipemia E78.5 and Anxiety F41.9 [facility] [id number] [place] [address] [id number] Jan, Encounter for dental examination Z01.20 [facility] [id number] [place] [address] [phone] 5702 Dec, [address] [phone]- 3892 Dec, HTN (hypertension) I10 ; Hyperlipidemia E78.5 ; CAD ( coronary artery disease) I25.10 ; GERD (gastroesophageal reflux disease) K21.9 ; BPH (benign prostatic hyperplasia) N40.0 and Encounter for screening colonoscopy Z12.11 [facility] [id number] [place] [address] [id number] Aug, CAD (coronary artery disease) I25.10 ; Hypertension I10 ; Anxiety F41.[address] [facility] [id number] [place] [address] [id number] Jul, Encounter for dental examination Z01.20 [facility] [id number] [place] [address] 94875- 5106 Jul, [facility] [address] [id number] [id number] Mar, Dental examination V72.2 [facility] [id number] [place] [address] 47205- 1788 February, [facility] [address] [address] February, Other and unspecified hyperlipidemia 272.4 ; Unspecified essential hypertension 401.9 and CAD (coronary artery disease) 414.00 [facility] [id number] [place] [address] 65863- 5845 February, Unspecified essential hypertension 401.9 ; Other and unspecified hyperlipidemia 272.4 ; CAD (coronary artery disease) 414.00 and Fatigue 780.79 [facility] [address] [address]- 5539 Jan, [facility] [id number] [place] [address] 87310- 5809 Jan, [facility] [id number] [place] [address] 13427- 6104 Nov, [facility] [id number] [place] [address] 80319- 8363 Nov, [facility] [address] [address]- 1411 Nov, [facility] [address] [address]- 7519 Nov, [facility] [address] [address]- 3175 Sep, [facility] [id number] [place] [address] 256114- 0487 Sep, [facility] [address] 5998 Sep, [facility] [id number] [place] [address] 55673- 5312 Sep, [facility] [place] [facility] [address] [id number] [place] [address]- 7103 Sep, [facility] [place] [facility] [address] [id number] [place] 8481 Sep, [facility] [place] [facility] [address] [id number] [place] [address]- 4734 Aug, [facility] [place] [facility] [address] [id number] [place] [address]- 1208 Aug, [facility] [place] [facility] [address] [id number] [place] [address]- 2527 Aug, [facility] [place] [facility] [address] [id number] [place] [address]- 9576 Aug, [facility] [place] [facility] [address] [id number] [place] [address]- 4940 Jul, [facility] [place] [facility] [address] [id number] [place] [address]- 7533 Jul, [facility] [place] [facility] [address] [id number] [place] [address]- 3736 Jul, [facility] [place] [facility] [address] [id number] [place] [address]- 1480 Jul, [facility] [place] [facility] [address] [id number] [place] [address]- 3990 29 Jun, 2014 [facility] [place] [facility] [address] [id number] [place] [address]- 0148 29 Jun, 2014 [facility] [place] [facility] [address] [id number] [place] [address]- 8054 23 Jun, 2014 [facility] [place] [facility] [address] [id number] [place] [address]- 5341 23 Jun, 2014 [facility] [place] [facility] [address] [id number] [place] [address]- 9683 22 Jun, 2014 [facility] [place] [facility] [address] [id number] [place] [address]- 7892 22 Jun, 2013 [facility] [address] [id number] [place] [address]- 5243 18 Jun, 2014 [facility] [place] [facility] [address] [id number] [place] [address]- 2496 18 Jun, 2014 [facility] [address] [id number] [place] [address]- 7224 Mar, [facility] [place] [facility] [address] [id number] [place] [address]- 6250 Mar, [facility] [address] [id number] [place] [address]- 1969 Jan, [facility] [address] [id number] [place] [address]- 9656 Jan, [facility] [address] [id number] [place] [address]- 6797 Oct, [facility] [address] [id number] [place] [address]- 9268 Oct, [facility] [address] [id number] [place] [address]- 5459 17 Jun, 2013 [facility] [address] [id number] [place] [address]- 2225 17 Jun, 2012 [facility] [place] [facility] [address] [id number] [place] [address]- 0422 16 Jun, 2012 [facility] [address] [id number] [place] [address]- 2541 16 Jun, 2012 [facility] [place] [facility] [address] [id number] [place] [address]- 8551 06 Jun, 2012 [facility] [place] [facility] [address] [id number] [place] [address]- 0990 04 Jun, 2012 [facility] [place] [facility] [address] [id number] [place] [address]- 9648 May, [facility] [place] [facility] [address] [id number] [place] [address]- 4355 May, [facility] [place] [facility] [address] [id number] [place] [address]- 3207 Mar, [facility] [place] [facility] [address] [id number] [place] [address]- 2843 February, [facility] [place] [facility] [address] [id number] [place] [address]- 6233 Jan, [facility] [place] [facility] [address] [id number] [place] [address]- 5224 Jan, [facility] [place] [facility] [address] [id number] [place] [address]- 0399 Jan, [facility] [place] [facility] [address] [id number] [place] [address]- 8430 Nov, [facility] [place] [facility] [address] [id number] [place] [address]- 5833 Aug, [facility] [place] [facility] [address] [id number] [place] [address]- 7622 Aug, [facility] [place] [facility] [address] [id number] [place] [address]- 3961 Aug, [facility] [place] [facility] [address] [id number] [place] [address]- 0768 Aug, [facility] [place] [facility] [address] [id number] [place] [address]- 1522 Aug, [facility] [place] [facility] [address] [id number] [place] [address]- 9148 Aug, [facility] [place] [facility] [address] [id number] [place] [address]- 0397 Aug, [facility] [place] [facility] [address] [id number] [place] [address]- 4524 Aug, [facility] [place] [facility] [address] [id number] [place] [address]- 4081 Jun, [facility] [address] [id number] [place] [address]- 9913 February, [facility] [place] [facility] [address] [id number] [place] [address]- 3256 February, [facility] [place] [facility] [address] [id number] [place] [address]- 8606 February, [facility] [place] [facility] [address] [id number] [place] [address]- 0583 Jan, [facility] [place] [facility] [address] [id number] [place] [address]- 7666 Nov, [facility] [place] [facility] [address] [id number] [place] [address]- 0856 Oct, [facility] [place] [facility] [address] [id number] [place] [address]- 0106 Oct, [facility] [place] [facility] [address] [id number] [place] [address]- 6288 Sep, [facility] [place] [facility] [address] [id number] [place] [address]- 6967 14 Sep, 2011 [facility] [place] [facility] [address] [id number] [place] [address]- 7650 14 Sep, 2011 [facility] [place] [facility] [address] [id number] [place] [address]- 5563 13 Sep, 2011 [facility] [place] [facility] [address] [id number] [place] [address]- 8379 11 Sep, 2011 [facility] [place] [facility] [address] [id number] [place] [address]- 3551 08 Sep, 2011 [facility] [place] [facility] [address] [id number] [place] [address]- 0725 12 Jul, 2011 [facility] [place] [facility] [address] [id number] [place] [address]- 6443 Jul, [facility] [place] [facility] [address] [facility] [id number] [place] [address]- 2781 10 Mar, 2011 IMMUNIZATIONS No Known Immunizations SOCIAL HISTORY Never Assessed REASON FOR VISIT Refill request PLAN OF CARE VITAL SIGNS MEDICATIONS Medication Instructions Dosage Frequency Start Date End Date Duration Status Gabapentin 300 MG Orally Once a day 1 capsule 24h February, 30 days Active Metoprolol Succinate 25 mg by oral route Once a day 1 tablet by Oral route 1 time per day 24h Nov, 30 days Active MetFORMIN HCl ER 500 mg Orally 2 times a day Take one tablet with meals twice a day 12h Dec, 30 days Active Tamsulosin HCl 0.4 MG Orally Once a day 1 capsule 30 minutes after the same meal each day 24h 30 days Active Pravastatin Sodium 40 mg Orally Once a day 1 tablet 24h February, 30 days Active RESULTS No Results PROCEDURES No Known procedures INSTRUCTIONS MEDICATIONS ADMINISTERED No Known Medications MEDICAL (GENERAL) HISTORY Type Description Date Medical History hyperlipidemia Medical History hypertension Medical History CAD w/stents x 2 RCA Medical History BPH Medical History GERD Surgical History Surgery on right fingers Surgical History Stents placed- Dr Armstrong 10/17- ([id number]) Hospitalization History blocked artery with stent placement 10/17/2012
--- OUTSIDE RECORDS SUMMARY | 2018-05-13 18:20 | XMS REPORT ---
Author Author LAURENT LEIGH Organization [employer] Address Unknown Phone Unavailable Care Team Providers Care Core Sucker Name Role Phone LAURENT LEIGH CP Unavailable Allergies, Adverse Reactions, Alerts Substance Reaction Event Type N.K.D.A. Info Not Available Non Drug Allergy Problems Problem Type Condition Code Onset Dates Condition Status Assessment Prediabetes R73.03 Active Problem Encounter for screening colonoscopy Z12.11 Active Problem Encounter for dental examination Z01.20 Active Problem Prediabetes R73.03 Active Problem HTN (hypertension) I10 Active Problem Neuropathy G62.9 Active Problem GERD (gastroesophageal reflux disease) K21.9 Active Problem BPH (benign prostatic hyperplasia) N40.0 Active Problem Hyperlipidemia E78.5 Active Problem CAD (coronary artery disease) I25.10 Active Assessment GERD (gastroesophageal reflux disease) K21.9 Active Assessment CAD (coronary artery disease) I25.10 Active Assessment BPH (benign prostatic hyperplasia) N40.0 Active Assessment Hyperlipidemia E78.5 Active Assessment Neuropathy G62.9 Active Assessment HTN (hypertension) I10 Active Medications Medication Code System Code Instructions Start Date End Date Status Dosage Pantoprazole Sodium [facility] [address]-99 40 mg Orally Once a day Aug 23, 2015 1 tablet Fish Oil [facility] [address]-10 Aug 31, 2012 not defined MetFORMIN HCl ER [facility] [address]-00 500 MG Orally 2 times a day December 23, 2015 1 tablet with evening meal for one week, then one tablet with meals twice daily Aspirin [facility] [address]-51 Nov 24, 2011 by Oral route Tamsulosin HCl [facility] [address]-63 0.4 MG Orally Once a day 1 capsule 30 minutes after the same meal each day Metoprolol Succinate [facility] 0 25 mg by oral route Once a day Nov 26, 2014 1 tablet by Oral route 1 time per day Pravastatin Sodium [facility] [address]-44 40 mg Orally Once a day February 22, 2015 1 tablet Multi Vitamin Mens [facility] [address]93-49607 Orally Once a day 1 tablet Gabapentin [facility] [address]-42 100 MG Orally Once a day Jul 24, 2016 1 capsule Procedures Procedure Coding System Code Date Office Visit, Est Pt., Level 3 CPT-4 44147 Jul 24, 2016 GLYCATED HEMOGLOBIN TEST CPT-4 21084 Jul 24, 2016 Vital Signs Date/Time: Jul 24, 2016 Cardiac Monitoring Heart Rate 78 bpm Weight 190 lbs Height 69 in BMI 28.06 Index Blood Pressure Diastolic 86 mmHg Blood Pressure Systolic 136 mmHg Results Name Result Date Reference Range Unit Abnormality Flag A1C (IN HOUSE) ----A1C IN HOUSE 5.7 [id number] 4.3 - 5.6 % ----Previous A1c 6.0 [id number] ----Lot [id number] ----Exp date [id number] Summary Purpose [employer] Submission
--- OUTSIDE RECORDS SUMMARY | 2018-05-13 18:20 | XMS REPORT ---
Author GURMEET Trejo [employer] Address Unknown Phone Unavailable Care Team Providers Care Marketing Analytics Manager Name Role Phone GURMEET NAYAK CP Unavailable Allergies, Adverse Reactions, Alerts Substance Reaction Event Type N.K.D.A. Info Not Available Non Drug Allergy Problems Problem Type Condition Code Onset Dates Condition Status Problem Contact dermatitis and other eczema, due to unspecified cause 692.9 Active Problem Dermatophytosis of the body 110.5 Active Problem Essential hypertension, benign 401.1 Active Problem CAD (coronary artery disease) 414.00 Active Problem Encounter for long-term (current) use of other medications V58.69 Active Problem Encounter for dental examination Z01.20 Active Problem Memory loss 780.93 Active Problem Chest pain, unspecified 786.50 Active Problem Dermatophytosis of nail 110.1 Active Problem Carpal tunnel syndrome 354.0 Active Problem Other and unspecified hyperlipidemia 272.4 Active Problem Postprocedural percutaneous transluminal coronary angioplasty status V45.82 Active Assessment Encounter for dental examination Z01.20 Active Problem Unspecified concussion 850.9 Active Problem Contusion of unspecified site 924.9 Active Problem Unspecified essential hypertension 401.9 Active Problem Special screening for malignant neoplasms, colon V76.51 Active Problem Unspecified arthropathy, site unspecified 716.90 Active Problem Unspecified hypertrophic and atrophic condition of skin 701.9 Active Problem Esophageal reflux 530.81 Active Medications Medication Code System Code Instructions Start Date End Date Status Dosage Fish Oil [facility] [address]-94 Aug 31, 2012 not defined Aspirin [facility] [address]-40 Nov 24, 2011 by Oral route pantoprazole NDC 0 40 mg February 25, 2012 1 tablet by Oral route 1 time per day for 30 day(s) Pravastatin Sodium [facility] [address]-91 40 MG Orally Once a day February 22, 2015 1 tablet Metoprolol Succinate NDC 0 25 mg Nov 26, 2014 1 tablet by Oral route 1 time per day Procedures Procedure Coding System Code Date Periodontal maint procedures CPT-4 D4910 Jul 30, 2015 TOPICAL FLUORIDE VARNISH CPT-4 D1206 Jul 30, 2015 PERIODIC ORAL EXAMINATION CPT-4 D0120 Jul 30, 2015 Vital Signs Date/Time: Jul 30, 2015 Blood Pressure Diastolic 81 mmHg Blood Pressure Systolic 133 mmHg Cardiac Monitoring Heart Rate 72 bpm Results No Known Results Summary Purpose [employer] Submission
--- OUTSIDE RECORDS SUMMARY | 2018-05-13 18:20 | XMS REPORT ---
Author Author LAURENT LEIGH Organization [facility] Address [address] [place] [address] Care Team Providers Care Histology Manager Name Role Phone LAURENT LEIGH Unavailable PROBLEMS Type Condition ICD9-CM Code [id number] Code Onset Dates Condition Status SNOMED Code Problem GERD (gastroesophageal reflux disease) K21.9 Active 883808368 Problem CAD (coronary artery disease) I25.10 Active 71573000 Problem Essential hypertension I10 Active 73494738 Problem Overweight (BMI 25.0-29.9) E66.3 Active 437529398 Problem Hyperlipemia E78.5 Active 18835611 Problem BPH (benign prostatic hyperplasia) N40.0 Active 650239111 Problem Prediabetes R73.03 Active 864969326 Problem Neuropathy G62.9 Active 865612957 ALLERGIES No Known Allergies ENCOUNTERS Encounter Location Date Diagnosis [place] [id number] [place] [address] 32697- 7039 Mar, [place] [address] [place] [id number] [place] [address] 89253- 3018 Dec, Prediabetes R73.03 ; Essential hypertension I10 ; Hyperlipidemia E78.5 ; GERD (gastroesophageal reflux disease) K21.9 ; Neuropathy G62.9 and Overweight (BMI 25.0-29.9) E66.3 [facility] [address] [place] [address] 92952- 3409 Sep, HTN (hypertension) I10 ; Hyperlipidemia E78.5 ; GERD ( gastroesophageal reflux disease) K21.9 ; Neuropathy G62.9 ; Prediabetes R73.03 and BPH (benign prostatic hyperplasia) N40.0 [facility] [address] [address] [id number] [place] [address] 88665- 7926 Aug, [facility] [address], [place] [address] 8886 Aug, Prediabetes R73.03 ; HTN (hypertension) I10 ; Hyperlipidemia E78.5 ; BPH (benign prostatic hyperplasia) N40.0 and Neuropathy G62.[address] [facility] [id number] [id number] Jul, Encounter for dental examination Z01.[address] [facility] [address] [id number] [place] [address] [id number] Jul, Dental examination Z01.20 [facility] [id number] [place] [address] 27384- 9606 Jul, CAD (coronary artery disease) I25.10 ; Hyperlipidemia E78.5 ; HTN (hypertension) I10 and Type 2 diabetes mellitus without complications E11.[address] [facility] [address] [id number] Apr, Dental examination Z01.20 [facility] [address] [address] [id number] [place] [address] [id number]- 0896 Apr, [facility] [id number] [place] [address] 21268- 2426 Apr, Gastroenteritis K52.9 [facility] [id number] [place] [address] [id number]- 5135 February, [facility] [id number] [place] [address] 05578- 6513 February, Prediabetes R73.03 ; HTN (hypertension) I10 ; Hyperlipidemia E78.5 and GERD (gastroesophageal reflux disease) K21.9 [facility] [id number] [place] [address] [id number]- 4090 February, [facility] [address] [id number] [place] [address] [id number]- 3306 February, Prediabetes R73.03 ; HTN (hypertension) I10 ; Hyperlipidemia E78.5 ; GERD (gastroesophageal reflux disease) K21.9 ; BPH ( benign prostatic hyperplasia) N40.0 and Neuropathy G62.[address] [facility] [address] [id number] 17 Jan, 2017 Encounter for dental examination Z01.20 [facility] [address] [id number] [place] [address] 89680- 8424 Jan, [facility] [id number] [place] [address] 16553- 0819 Jan, CAD (coronary artery disease) I25.10 ; Hyperlipidemia E78.5 ; Hypertension I10 and Type 2 diabetes mellitus without complications E11.9 [facility] [address] [id number] [place] [address] 94224- 0626 09 Nov, 2016 Hypertension I10 ; Hyperlipidemia E78.5 ; Prediabetes R73.03 ; BPH (benign prostatic hyperplasia) N40.0 and Neuropathy G62.9 [facility] [address] [id number] [place] [address] 43026- 9312 Nov, [facility] [address] [id number] [place] [address] 32130- 0614 Oct, Encounter for dental examination Z01.20 [facility] [address] [id number] [place] [address] 21354- 0335 Sep, [facility] [address] [place] [address] 63675- 0471 Sep, [facility] [address] [id number] [place] [address] 67758- 8084 Aug, [facility] [id number] [place] [address] 80350- 7031 Aug, CAD (coronary artery disease) I25.10 ; Hypertension I10 ; Hyperlipemia E78.5 ; Type 2 diabetes mellitus without complications E11.9 and [facility] current use of insulin Z79.4 [facility] [address] [address] Jul, [facility] [address] [place] [id number] Jul, Encounter for dental examination Z01.20 [facility] [address] 309531- 7236 Jul, Prediabetes R73.03 ; HTN (hypertension) I10 ; Hyperlipidemia E78.5 ; CAD (coronary artery disease) I25.10 ; GERD ( gastroesophageal reflux disease) K21.9 ; Neuropathy G62.9 and BPH (benign prostatic hyperplasia) N40.0 [facility] [address] 929485- 2716 Jun, [facility] [address] [id number] Apr, Encounter for dental examination Z01.20 [place] [address] 34782- 5066 February, CAD (coronary artery disease) I25.10 ; Hypertension I10 ; Hyperlipemia E78.5 and Anxiety F41.[address] [facility] [address] [id number] [place] [address] [id number] Jan, Encounter for dental examination Z01.20 [facility] [address] 851934- 8426 Dec, [facility] [address] [place] [id number] [place] [address] 92338- 7606 Dec, HTN (hypertension) I10 ; Hyperlipidemia E78.5 ; CAD ( coronary artery disease) I25.10 ; GERD (gastroesophageal reflux disease) K21.9 ; BPH (benign prostatic hyperplasia) N40.0 and Encounter for screening colonoscopy Z12.11 [place] [address] 318587- 5896 Aug, CAD (coronary artery disease) I25.10 ; Hypertension I10 ; Anxiety F41.9 and Hyperlipemia E78.[address] [facility] [address] [id number] Jul, Encounter for dental examination Z01.20 [facility] [address] [address] Jul, [facility] [address] [id number] Mar, Dental examination V72.2 [facility] [address] [address] 6212 February, [facility] [address] [address] [id number] [place] [address] 926265- 9595 February, Other and unspecified hyperlipidemia 272.4 ; Unspecified essential hypertension 401.9 and CAD (coronary artery disease) 414.00 [facility] [address] [id number] [place] [address] 745007- 9636 February, Unspecified essential hypertension 401.9 ; Other and unspecified hyperlipidemia 272.4 ; CAD (coronary artery disease) 414.00 and Fatigue 780.79 [facility] [id number] [address] 7479 Jan, [facility] [address] [address]- 4706 Jan, [facility] [address] [place] [address] 82439- 2641 Nov, [facility] [address], [place] [address]- 8226 Nov, [facility] [address] [address]- 8466 Nov, [facility] [address], [place] [address]- 3096 Nov, [facility] [address], [place] [address]- 6526 Sep, [facility] [address], [place] [address]- 7306 Sep, [facility] [address] [address] [id number] [place] [address] 31094- 9920 Sep, [facility] [place] [facility] [address] [id number] [place] [address]- 6386 Sep, [facility] [place] [facility] [address] [id number] [place] 7364 Sep, [facility] [place] [facility] [address] [id number] [place] [address]- 3381 Sep, [facility] [place] [facility] [address] [id number] [place] [address]- 0708 Aug, [facility] [place] [facility] [address] [id number] [place] [address]- 0730 Aug, [facility] [place] [facility] [address] [id number] [place] [address]- 2629 Aug, [facility] [place] [facility] [address] [id number] [place] [address]- 1573 Aug, [facility] [place] [facility] [address] [id number] [place] [address]- 1847 Jul, [facility] [place] [facility] [address] [id number] [place] [address]- 8841 Jul, [facility] [place] [facility] [address] [id number] [place] [address]- 3316 Jul, [facility] [place] [facility] [address] [id number] [place] [address]- 2144 Jul, [facility] [place] [facility] [address] [id number] [address]- 3593 Jun, [facility] [place] [facility] [address] [id number] [place] [address]- 7021 Jun, [facility] [place] [facility] [address] [id number] [place] [address]- 7634 Jun, [facility] [place] [facility] [address] [id number] [place] [address]- 0523 Jun, [facility] [place] [facility] [address] [id number] [place] [address]- 0128 22 Jun, 2013 [facility] [address] [id number] [place] [address]- 7829 22 Jun, 2013 [facility] [place] [facility] [address] [id number] [place] [address]- 8650 18 Jun, 2014 [facility] [place] [facility] [address] [id number] [place] [address]- 4217 18 Jun, 2014 [facility] [place] [facility] [address] [id number] [place] [address]- 4317 Mar, [facility] [place] [facility] [address] [id number] [place] [address]- 4573 Mar, [facility] [place] [facility] [address] [id number] [place] [address]- 6311 Jan, [facility] [place] [facility] [address] [id number] [place] [address]- 9990 Jan, [facility] [address] [id number] [place] [address]- 0038 Oct, [facility] [place] [facility] [address] [id number] [place] [address]- 5220 Oct, [facility] [address] [id number] [place] [address]- 2971 17 Jun, 2012 [facility] [place] [facility] [address] [id number] [place] [address]- 1371 17 Jun, 2012 [facility] [place] [facility] [address] [id number] [place] [address]- 7057 16 Jun, 2012 [facility] [place] [facility] [address] [id number] [place] [address]- 6956 16 Jun, 2012 [facility] [place] [facility] [address] [id number] [place] [address]- 4386 06 Jun, 2012 [facility] [place] [facility] [address] [id number] [place] [address]- 5175 Jun, [facility] [address] [id number] [place] [address]- 2100 May, [facility] [place] [facility] [address] [id number] [place] [address]- 5777 May, [facility] [place] [facility] [address] [id number] [place] [address]- 3634 Mar, [facility] [place] [facility] [address] [id number] [place] [address]- 2506 February, [facility] [place] [facility] [address] [id number] [place] [address]- 6753 Jan, [facility] [place] [facility] [address] [id number] [place] [address]- 2367 Jan, [facility] [place] [facility] [address] [id number] [place] [address]- 0442 Jan, [facility] [place] [facility] [address] [id number] [place] [address]- 1952 Nov, [facility] [place] [facility] [address] [id number] [place] [address]- 6948 Aug, [facility] [place] [facility] [address] [id number] [place] [address]- 6016 Aug, [facility] [place] [facility] [address] [id number], [place] [address]- 3404 Aug, [facility] [place] [facility] [address] [id number] [address]- 4350 Aug, [facility] [place] [facility] [address] [id number] [place] [address]- 2867 Aug, [facility] [place] [facility] [address] [id number] [place] [address]- 1542 Aug, [facility] [place] [facility] [address] [id number] [place] [address]- 8946 14 Aug, 2012 [facility] [place] [facility] [address] [id number] [place] [address]- 2670 14 Aug, 2012 [facility] [address] [id number] [place] [address]- 5226 Jun, [facility] [place] [facility] [address] [id number] [place] [address]- 9486 February, [facility] [place] [facility] [address] [id number] [place] [address]- 1866 February, [facility] [place] [facility] [address] [id number] [place] [address]- 7646 February, [facility] [place] [facility] [address] [id number] [place] [address]- 0446 Jan, [facility] [place] [facility] [address] [id number] [place] [address]- 2546 Nov, [facility] [address] [id number] [place] [address]- 5184 24 Oct, 2011 [facility] [place] [facility] [address] [id number] [place] [address]- 4038 Oct, [facility] [place] [facility] [address] [id number] [place] [address]- 9333 19 Sep, 2011 [facility] [place] [facility] [address] [id number] [place] [address]- 3677 14 Sep, 2011 [facility] [place] [facility] [address] [id number] [place] [address]- 0786 14 Sep, 2011 [facility] [place] [facility] [address] [id number] [place] [address]- 7943 13 Sep, 2011 [facility] [place] [facility] [address] [id number] [place] [address]- 0595 11 Sep, 2011 [facility] [place] [facility] [address] [id number] [place] [address]- 2546 08 Sep, 2011 [facility] [place] [facility] [address] [id number] [place] [address]- 1377 Jul, [facility] [address] [facility] [id number] [place] [address]- 9908 Jul, [facility] [address] [facility] [id number] [address]- 8385 Mar, IMMUNIZATIONS No Known Immunizations SOCIAL HISTORY Never Assessed REASON FOR VISIT Diabetes f/u----DBennettRN PLAN OF CARE Activity Details Follow Up 3 Months Reason:M VITAL SIGNS Height 69 in 2017-09-17 Weight 186 lbs 2017-09-17 Temperature 99.5 degrees Fahrenheit 2017-09-17 Heart Rate 80 bpm 2017-09-17 Respiratory Rate 20 2017-09-17 BMI 27.46 kg/m2 2017-09-17 Blood pressure systolic 122 mmHg 2017-09-17 Blood pressure diastolic 80 mmHg 2017-09-17 MEDICATIONS Medication Instructions Dosage Frequency Start Date End Date Duration Status Pravastatin Sodium 40 mg Orally Once a day 1 tablet 24h February, 6 Months Active Aspirin by Oral route Nov, Active Fish Oil Aug, Active MetFORMIN HCl ER 500 mg Orally 2 times a day Take one tablet with meals twice a day 12h Dec, 90 days Active Multi Vitamin Mens Orally Once a day 1 tablet 24h Active Tamsulosin HCl 0.4 MG Orally Once a day 1 capsule 30 minutes after the same meal each day 24h Sep, 6 Months Active Pantoprazole Sodium 40 mg Orally Once a day 1 tablet 24h Aug, 6 Months Active Metoprolol Succinate 25 mg by oral route Once a day 1 tablet by Oral route 1 time per day 24h Nov, Sep, 6 Months Active Gabapentin 300 MG Orally Once a day 1 capsule 24h February, 6 Months Active Glucocard Expression Test 1 subcutaneously 2 times a day test 2 times per day 12h Sep, 12 months Active RESULTS Name Result Date Reference Range A1C (IN HOUSE) 2017-09-17 A1C IN HOUSE 6.0 4.3 - 5.6 % Previous A1c 6.0 Lot [id number] Exp date 06/05 MICROALBUMIN, URINE (IN HOUSE) 2017-09-17 MICROALBUMIN normal Lot # [id number] Exp date 07/17/18 Clarity clear Color yellow ALB 30 CRE 200 A:C (IN HOUSE) <30 Control Control Lot # Exp date PROCEDURES Procedure Date Ordered Result Body Site GLYCATED HEMOGLOBIN TEST Sep 17, 2017 MICROALBUMIN, SEMIQUANT Sep 17, 2017 INSTRUCTIONS MEDICATIONS ADMINISTERED No Known Medications MEDICAL (GENERAL) HISTORY Type Description Date Medical History hyperlipidemia Medical History hypertension Medical History CAD w/stents x 2 RCA Medical History BPH Medical History GERD Surgical History Surgery on right fingers Surgical History Stents placed- Dr Armstrong 10/17- ([id number]) Hospitalization History blocked artery with stent placement 10/17/2012
--- OUTSIDE RECORDS SUMMARY | 2018-05-13 18:20 | XMS REPORT ---
Author Author LAURENT LEIGH Organization [facility] Address [address] [place] [address] Care Team Providers Care Preschool Teacher Aide Name Role Phone LEIGHKAITY PatinoELE Unavailable PROBLEMS Type Condition ICD9-CM Code WJM64-SQ Code Onset Dates Condition Status SNOMED Code Problem BPH (benign prostatic hyperplasia) N40.0 Active 686457585 Problem HTN (hypertension) I10 Active 53628293 Problem Encounter for screening colonoscopy Z12.11 Active 359226728 Problem Hyperlipidemia E78.5 Active 21644467 Problem Neuropathy G62.9 Active 549130920 Problem Prediabetes R73.03 Active 568275177 Problem GERD (gastroesophageal reflux disease) K21.9 Active 029164219 Problem CAD (coronary artery disease) I25.10 Active 57806815 Problem Hyperlipemia E78.5 Active 07529916 Problem Hypertension I10 Active 24171138 ALLERGIES No Known Allergies SOCIAL HISTORY Never Assessed PLAN OF CARE Activity Details Follow Up 3 Months Reason:CHM VITAL SIGNS Height 69 in 2016-11-26 Weight 191.0 lbs 2016-11-26 Temperature 97.0 degrees Fahrenheit 2016-11-26 Heart Rate 80 bpm 2016-11-26 Respiratory Rate 20 2016-11-26 BMI 28.20 kg/m2 2016-11-26 Blood pressure systolic 130 mmHg 2016-11-26 Blood pressure diastolic 80 mmHg 2016-11-26 MEDICATIONS Medication Instructions Dosage Frequency Start Date End Date Duration Status Metoprolol Succinate 25 mg by oral route Once a day 1 tablet by Oral route 1 time per day 24h Nov, February, 90 days Active Pantoprazole Sodium 40 mg Orally Once a day 1 tablet 24h Aug, Active Pravastatin Sodium 40 mg Orally Once a day 1 tablet 24h February, 90 days Active Tamsulosin HCl 0.4 MG Orally Once a day 1 capsule 30 minutes after the same meal each day 24h February, 90 days Active Aspirin by Oral route Nov, Active Fish Oil Aug, Active Multi Vitamin Mens Orally Once a day 1 tablet 24h Active MetFORMIN HCl ER 500 MG Orally 2 times a day Take one tablet with meals twice a day 12h Dec, 90 days Active Gabapentin 100 mg Orally Once a day 1 capsule 24h Jul, 90 days Active RESULTS Name Result Date Reference Range A1C (IN HOUSE) 2016-11-26 A1C IN HOUSE Previous A1c 5.7 Lot [id number] Exp date 08/2018 A1C (IN HOUSE) 2016-11-26 A1C IN HOUSE 6.0 4.3 - 5.6 % Previous A1c 5.7 Lot 72 Exp date 08/2018 PROCEDURES Procedure Date Ordered Result Body Site GLYCATED HEMOGLOBIN TEST Nov 26, 2016 IMMUNIZATIONS No Known Immunizations MEDICAL (GENERAL) HISTORY Type Description Date Medical History hyperlipidemia Medical History hypertension Medical History CAD w/stents x 2 RCA Medical History BPH Medical History GERD Surgical History Surgery on right fingers Surgical History Stents placed- Dr Armstrong 10/17- ([id number]) Hospitalization History blocked artery with stent placement 10/17/2012
--- OUTSIDE RECORDS SUMMARY | 2018-05-13 18:21 | XMS REPORT ---
Author Author ADILIA PERKINS Organization [employer] Address Unknown Phone Unavailable Care Team Providers Care Field Ring Assembler Name Role Phone ADILIA PERKINS CP Unavailable Allergies, Adverse Reactions, Alerts Substance Reaction Event Type N.K.D.A. Info Not Available Non Drug Allergy Problems Problem Type Condition Code Onset Dates Condition Status Assessment Hyperlipemia E78.5 Active Problem Essential hypertension, benign 401.1 Active Assessment Anxiety F41.9 Active Problem Dermatophytosis of the body 110.5 Active Assessment Hypertension I10 Active Problem Chest pain, unspecified 786.50 Active Problem Carpal tunnel syndrome 354.0 Active Problem Memory loss 780.93 Active Problem CAD (coronary artery disease) I25.10 Active Problem Hypertension I10 Active Problem Other and unspecified hyperlipidemia 272.4 Active Problem Unspecified concussion 850.9 Active Problem Encounter for dental examination Z01.20 Active Assessment CAD (coronary artery disease) I25.10 Active Problem Encounter for long-term (current) use of other medications V58.69 Active Problem Dermatophytosis of nail 110.1 Active Problem Hyperlipemia E78.5 Active Problem CAD (coronary artery disease) 414.00 Active Problem Unspecified hypertrophic and atrophic condition of skin 701.9 Active Problem Contusion of unspecified site 924.9 Active Problem Postprocedural percutaneous transluminal coronary angioplasty status V45.82 Active Problem Special screening for malignant neoplasms, colon V76.51 Active Problem Esophageal reflux 530.81 Active Problem Contact dermatitis and other eczema, due to unspecified cause 692.9 Active Problem Unspecified essential hypertension 401.9 Active Problem Unspecified arthropathy, site unspecified 716.90 Active Medications Medication Code System Code Instructions Start Date End Date Status Dosage Pantoprazole Sodium [facility] [address]-35 40 MG Orally Once a day Aug 23, 2015 1 tablet Aspirin [facility] [address]-09 Nov 24, 2011 by Oral route Metoprolol Succinate ND 0 25 mg Nov 26, 2014 1 tablet by Oral route 1 time per day Pravastatin Sodium [facility] [address]-54 40 MG Orally Once a day February 22, 2015 1 tablet Fish Oil [facility] [address]-46 Aug 31, 2012 not defined Procedures Procedure Coding System Code Date Office Visit, Est Pt., Level 4 CPT-4 85457 Aug 23, 2015 Vital Signs Date/Time: Aug 23, 2015 Cardiac Monitoring Heart Rate 74 bpm Weight 183.5 lbs Height 69 in BMI 27.10 Index Blood Pressure Diastolic 82 mmHg Blood Pressure Systolic 138 mmHg Results No Known Results Summary Purpose [employer] Submission
== END 2018-05-13 14:10 | disposition home or self-care (01) ==
LOC: SDC 10:08
PROVIDERS: ATTEND Surgery
DX: R59.0 Localized enlarged lymph nodes (principal); E11.9 Type 2 diabetes mellitus without complications; I10 Essential (primary) hypertension; Z79.82 Long term (current) use of aspirin; Z79.84 Long term (current) use of oral hypoglycemic drugs
CPT/HCPCS: 82962; 87081

== ENCOUNTER → 2018-05-20 | Outpatient (CLI) | payer BC ==
[~2018-05-20] MED LIST changes: +ACHD5005 PO
== END ==
LOC: LAB 16:14
PROVIDERS: ATTEND Surgery
DX: R59.1 Generalized enlarged lymph nodes (principal)
CPT/HCPCS: 36415; 86611; 86780

== ENCOUNTER → 2019-11-08 | Outpatient (CLI) | payer BC ==
[~2019-11-08] VITALS: Ht 175 cm; Wt 89.0 kg
[~2019-11-08] MED LIST changes: +CATHETER FLUSH 10 ML SYR IV PRN; +METF500T19 PO; -METF500T8 PO; -METO-387 PO; +MTP25TSR PO
[2019-11-08 13:42] VITALS: BP 150/83
--- NOTE | 2019-11-08 20:20 | STRESS TEST ---
DATE OF SERVICE: 11/08/2019 EXERCISE MYOVIEW STRESS TEST REPORT REFERRING PHYSICIAN: Dr. Edelmira Bhatti. Baseline heart rate is 66. Baseline blood pressure 132/80. Baseline EKG is sinus rhythm with no ischemic changes. In summary, the patient was injected with 10.14 mCi of technetium-99 Myoview and the resting images were obtained. Then, the patient started exercising with a baseline heart rate, blood pressure and EKG mentioned above. The patient was able to exercise for 11 minutes on standard Regino protocol. With peak exercise level, EKG was showing minimal nondiagnostic changes. During recovery, heart rate and blood pressure returned to baseline. The patient was injected with 29.7 mCi of technetium-99 Myoview at the peak stress level. The resting and stress images were reviewed and compared in the short axis, horizontal long axis, and vertical long axis views. Review of the images showed motion artifact affecting the quality of the images, there is mild decreased uptake involving the lateral wall with mild reversibility. SSS is 11, SDS 5, TID value 0.87. On the gated images, the left ventricle appeared to be normal size with normal contractility. Calculated ejection fraction 64%. CONCLUSION: 1. Excellent exercise tolerance, a total of 11 minutes on standard Regino protocol, total of 12.1 METS achieving 89% of maximum expected heart rate. 2. Nondiagnostic EKG changes with exercise returned to baseline during recovery. 3. Motion artifact affecting the quality of the images with questionable ischemia involving the mid to apical inferolateral and anterolateral wall. 4. Normal left ventricular size with normal contractility. Calculated ejection fraction 64%. Job ID: [id number] DocumentID: [id number] Dictated Date: 11/08/2019 16:34:25 [employer] Technical Rec[employer]iter Date: 11/08/2019 20:18:07 Dictated By: ADILIA PERKINS MD
== END ==
LOC: CARD 11:41
PROVIDERS: ATTEND Internal Medicine Cardiovascular Disease
DX: I07.1 Rheumatic tricuspid insufficiency (principal); I25.10 Atherosclerotic heart disease of native coronary artery without angina pectoris; I10 Essential (primary) hypertension; E78.5 Hyperlipidemia, unspecified; E11.9 Type 2 diabetes mellitus without complications
CPT/HCPCS: 78452; 93017; 93306

== ENCOUNTER 2019-12-15 07:16 | Day surgery (SDC) | payer BC ==
[2019-12-15] VITALS (11 sets, daily range): BP systolic 109–154; BP diastolic 67–101
[~2019-12-15] VITALS: Ht 175 cm; Wt 89.0 kg
[~2019-12-15 07:16] MED LIST changes: -CATHETER FLUSH 10 ML SYR IV PRN
[2019-12-15] MEDS ORDERED: NS IV 1000 ML 1,000 ML IV SCH ×2 (07:39→10:53)
[2019-12-15] MEDS ORDERED: NS IV 1000 ML 1,000 ML ONE (07:43)
[2019-12-15] MEDS ORDERED: HEParin (CATH LAB) 2,000 ML IV ONE (07:43)
[2019-12-15] MEDS ORDERED: LIDOCAINE 1% INJ 20 ML 20 ML VIAL ONE (07:43)
[2019-12-15 08:01] LABS: HEMOGLOBIN 15.5 G/DL (13.3-17.7); MEAN PLATELET VOLUME 10.9 FL (7.4-10.4); WHITE BLOOD COUNT 8.2 10^3/uL (4.3-11.0)
[2019-12-15] MEDS ORDERED: MELO7.5T46 PO (08:12)
[2019-12-15] MEDS ORDERED: GABA-488 PO (08:12)
[2019-12-15 08:15] LABS: PROTHROMBIN TIME PATIENT 13.3 SEC (12.2-14.7)
[2019-12-15 08:20] LABS: ALANINE AMINOTRANSFERASE 58 U/L (0-55); ALBUMIN 4.5 GM/DL (3.2-4.5); ALKALINE PHOSPHATASE 63 U/L (40-136); BILIRUBIN,TOTAL 0.7 MG/DL (0.1-1.0); BUN/CREATININE RATIO 16; CALCIUM 9.3 MG/DL (8.5-10.1); CARBON DIOXIDE 24 MMOL/L (21-32); CHLORIDE 103 MMOL/L (98-107); CHOLESTEROL 151 MG/DL (< 200); CREATININE SERUM 0.94 MG/DL (0.60-1.30); GFR ESTIMATED > 60; GLUCOSE 117 MG/DL (70-105); HDL CHOLESTEROL 57 MG/DL (40-60); POTASSIUM 3.7 MMOL/L (3.6-5.0); SODIUM 137 MMOL/L (135-145); TRIGLYCERIDES 65 MG/DL (<150); VLDL CHOLESTEROL 13 MG/DL (5-40)
--- NOTE | 2019-12-15 08:28 | Diagnostic Imaging Report ---
INDICATION: Pre-heart catheterization. TIME OF EXAM: 7:57 AM Correlation is made to prior chest from 10/16/2011. FINDINGS: The heart size is normal. The pulmonary vascularity is unremarkable. The lungs are clear. No infiltrate, effusion or pneumothorax is detected. IMPRESSION: No acute cardiopulmonary process is detected. Dictated by: Dictated on workstation # [id number]
[2019-12-15] MEDS ORDERED: fentaNYL INJECTION 100 MCG/2 ML AMP ONE (10:18)
[2019-12-15] MEDS ORDERED: MIDAZOLAM 5 MG/5 ML (VERSED) VIAL ONE (10:18)
--- NOTE | 2019-12-15 10:28 | Cardiac Procedure Note-CS/ASA ---
Pre-Procedure Note Pre-Op Procedure Note H&P Reviewed The H&P was reviewed, patient examined and no changes noted. Date H&P Reviewed: Dec 15, 2019 Time H&P Reviewed: 10:28 Conscious Sedation Pre-Proced Time 10:28 ASA Score 3 For ASA 3 and 4: Consider anesthesia and medical clearance. Also, for patients with a history of failed moderate sedation consider anesthesia. Airway Lungs Heart ASA score ASA 1: a normal healthy patient ASA 2: a patient with a mild systemic disease (mid diabetes, controlled hypertension, obesity x ASA 3: a patient with a severe systemic disease that limits activity (angina, COPD, prior Myocardial infarction) ASA 4: a patient with an incapacitating disease that is a constant threat to life (CHF, renal failure) ASA 5: a moribund patient not expected to survive 24 hrs. (ruptured aneurysm) ASA 6: a declared brain- patient whose organs are being harvested. For emergent operations, add the letter E after the classification Mallampati Classification Grade 3 Sedation Plan Analgesia, Amnesia, Plan communicated to team members, Discussed options with patient/fam, Discussed risks with patient/fam The patient is an appropriate candidate to undergo the planned procedure, sedation, and anesthesia. The patient immediately re-assessed prior to indication. ADILIA PERKINS MD Dec 15, 2019 10:28
--- NOTE | 2019-12-15 10:55 | Discharge Inst-Post CATH ---
Discharge Inst-CATH/EP Problems Reviewed?: Yes Post Cardiac Cath/EP D/C Inst Follow Up/Plan Appointment with Dr. Alatorre's office in 4 weeks <b>CARDIAC CATH/EP PROCEDURE DISCHARGE INSTRUCTIONS</b> ACTIVITY * Go Home directly and rest. * Limit activity of the leg (or wrist if it was used) for 7 days including aerobics, swimming, jogging, bicycling, etc. * Restrict stair-climbing for 7 days if possible, if not, climb up with your non-cath leg, then bring together on the same step. * Avoid lifting, pushing, pulling or excessive movement of the affected extremity for 7 days. * Customary sexual activity may be resumed after 2 days-use caution not to use a position that strains or causes pain to the affected extremity. * No driving for 24 hours. * NO SMOKING. * Avoid straining for bowel movements for 7 days. * Gentle walking on level ground is allowed. * Returning to work will depend on the type of procedure and the results. Your doctor will discuss this with you. CALL YOUR DOCTOR FOR ANY OF THE FOLLOWING: *If bleeding from the puncture site occurs- Apply gentle pressure to site with clean cloth and call your doctor or EMS. * If a knot or lump forms under the skin, increases in size, or causes pain. * If bruising appears to be worsening or moving further down your leg instead of disappearing. * Temperature above 101 F. CARE OF YOUR GROIN INCISION; * Bruising or purple discoloration of the skin near the puncture site is common. * You may shower only, no bathtub bathing for 5 days. Be careful to avoid slipping as your leg may feel stiff. * If a closure device was used on your femoral artery, please see the attached guide regarding care of the device and your leg. * Leave dressing on FOR 24 hours. CARE OF YOUR WRIST INCISION; * Bruising or purple discoloration of the skin near the puncture site is common. * You may shower. * DO NOT submerge wrist. * Leave dressing on FOR 24 hours. ADILIA ALATORRE MD Dec 15, 2019 10:54 am
[2019-12-15] MEDS ORDERED: PATIENT MAY USE OWN MEDS, ALL PO SCH (11:00)
--- NOTE | 2019-12-15 11:04 | Cardiac Cath Report ---
Cardiac Cath Report Physician (s)/[employer] Rec[employer]iter (s) Physician ADILIA PERKINS MD Pre-Procedure Diagnosis Pre-Procedure Diagnosis: CAD Post-Procedure Note Procedure Start Date: Dec 15, 2019 Name of Procedure: [facility] Findings/Procedure Note PROCEDURE NOTE: After explaining the procedure to the patient, all pros and cons were explained, all questions were answered. The patient signed the consent and then he was placed on the cardiac catheterization laboratory. Groin was prepped SL fashion local anesthesia was used. Sheath placed in the right femoral artery. Herberth right and left catheter were used to access the coronary system. advanced to LV and pressure measured At the end of the procedure the sheath was removed. Closure device FINDINGS: Hemodynamics LV 110/15, end-diastolic pressure 15 Aorta 113/67 mean of 88 ANATOMY: Left Main is free of obstructive disease Left Anterior Descending has mild disease nonobstructive disease Left Circumflex has mild disease nonobstructive disease Right Coronory Artery is dominant, tortuous with mild disease nonobstructive disease LV Gram was not done, pressure was measured CONCLUSION: 1. Mild coronary artery disease nonobstructive disease 2. Normal left ventricular end-diastolic pressure DISCUSSION AND RECOMMENDATION: Anesthesia Type: Conscious Sedation Estimated blood loss (mL): 25 ml Contrast Amount: 25 ml Total Radiation Dose: 307 mGy Post-Procedure Diagnosis Post-operative diagnosis: Coronary artery disease Hypertension Hyperlipidemia Chest pain ADILIA PERKINS MD Dec 15, 2019 11:03 am
== END 2019-12-15 15:23 | disposition home or self-care (01) ==
LOC: CATH 07:16 → SDC 11:15 → CATH 15:23
PROVIDERS: ATTEND Internal Medicine Cardiovascular Disease
DX: I25.10 Atherosclerotic heart disease of native coronary artery without angina pectoris (principal); I10 Essential (primary) hypertension; E78.2 Mixed hyperlipidemia; I08.1 Rheumatic disorders of both mitral and tricuspid valves; K21.9 Gastro-esophageal reflux disease without esophagitis; E11.9 Type 2 diabetes mellitus without complications; Z79.82 Long term (current) use of aspirin; Z79.899 Other long term (current) drug therapy; Z85.831 Personal history of malignant neoplasm of soft tissue
CPT/HCPCS: 36415; 71045; 80053; 80061; 85027; 85610; 85730; 87081; 93458

== ENCOUNTER → 2022-11-11 | Outpatient (CLI) | payer BC ==
[~2022-11-11] MED LIST changes: +CATHETER FLUSH 10 ML SYR IVP PRN; +GABA-488 PO; +MELO7.5T46 PO; +METF-865 PO; -METF500T19 PO; -PANT40TA3 PO; +PANT40TA52 PO
[2022-11-11 08:55] VITALS: BP 134/76
== END ==
LOC: CARD 07:30
PROVIDERS: ATTEND Internal Medicine Cardiovascular Disease
DX: I10 Essential (primary) hypertension (principal); I25.10 Atherosclerotic heart disease of native coronary artery without angina pectoris

== ENCOUNTER → 2022-11-13 | Outpatient (CLI) | payer BC ==
[2022-11-11 13:20] VITALS: BP 128/79
--- NOTE | 2022-11-11 13:20 | Cardiology Stress Test Report ---
Stress Test Report Date of Procedure/Referring: Date of Procedure: Nov 11, 2022 PCP Edelmira Bhatti DO Admitting Physician Admitting Physician: Attending Physician: Adilia Alatorre MD Indications: HTN Baseline Heart Rate: 74 Baseline Blood Pressure: Blood Pressure Systolic: 128 Blood Pressure Diastolic: 79 Baseline EKG: Baseline EKG: NSR Summary: After explaining the procedure and details to the patient, he signed the consent and was brought to the stress nuclear laboratory. Patient exercised on standard Regino protocol, EKG, heart rate and blood pressure were monitored continuously, resting and stress doses of radio tracer were injected, imaging was acquired and reviewed in the short axis, horizontal long axis and vertical long axis views Patient was able to exercise for a total of 10.30 minutes on Regino protocol, METs 12.1 Maximum heart rate 146 Maximum blood pressure 157/74 Stress EKG, Minimal nondiagnostic changes Recovery EKG, Return to baseline TID: 1.04 SSS: 1 SDS: 1 EF: 57 Conclusion: 1. Good exercise tolerance for a total of 10 minutes 30 seconds on standard Regino protocol, 12.1 METS achieving 91% of maximum expected heart rate 2. Appropriate heart rate and blood pressure response to exercise return to baseline during recovery 3. Nondiagnostic EKG changes with exercise return to baseline during recovery 4. No significant ischemia or infarction noted on SPECT images 5. Normal left ventricular size, ejection fraction 57% Copy Copies To 1: [facility]/ ADILIA ALATORRE MD Nov 11, 2022 13:20
[~2022-11-13] MED LIST changes: -CATHETER FLUSH 10 ML SYR IVP PRN
== END ==
LOC: CARD 11:00
PROVIDERS: ATTEND Internal Medicine Cardiovascular Disease
DX: I08.0 Rheumatic disorders of both mitral and aortic valves (principal); I11.9 Hypertensive heart disease without heart failure; I25.10 Atherosclerotic heart disease of native coronary artery without angina pectoris
CPT/HCPCS: 78452; 93017; A9502; C8929; 93306